=== PATIENT | female | born 2000 | race Caucasian/White ===

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

== ENCOUNTER → 2022-05-20 | Outpatient (CLI) | payer BC, SELFPAY ==
[2022-05-20 15:09] LABS: Cholesterol 211 mg/dL (200); High Density Lipoprotein 40 mg/dL; Triglycerides 162 mg/dL; Very Low Density Lipoprotein 32 mg/dL (5-40)
== END | disposition home or self-care (01) ==
LOC: BIMLAB 13:57
PROVIDERS: PCP Internal Medicine; Referring Provider Internal Medicine; Visit Provider Internal Medicine
DX: E78.5 Hyperlipidemia, unspecified (principal)
CPT/HCPCS: 36415; 80061

== ENCOUNTER → 2023-01-13 | Outpatient (CLI) | payer BC, SELFPAY ==
[2023-01-13 16:33] LABS: Absolute Lymphocyte Count 2.86 X10^3/uL (0.83-4.51); Absolute Neutrophil Count 8.3 X10^3/uL (2.0-7.7); Basophil# 0.06 X10^3/uL; Basophil% 0.5 % (0-1); Eosinophil# 0.06 X10^3/uL; Eosinophils% 0.5 % (0-5); Hematocrit 37.2 % (37-47); Hemoglobin 12.5 g/dL (12.0-15.0); Lymphocyte # 2.86 X10^3/ul (0.83-4.51); Lymphocyte % 23.8 % (19-41); Mean Corp Hgb Conc 33.6 g/dL (32-36); Mean Corpuscular Hgb 28.3 pg (27.0-32.0); Mean Corpuscular Volume 84.2 fL (81-99); Mean Platelet Vol. 9.7 fl (6.2-12.0); Monocyte% 5.8 % (0-10); NRBC Flagged by Analyzer 0 % (0-5); Neutrophil # 8.32 X10^3/uL (2.7-7.7); Neutrophil % 69.1 % (47-70); Platelet Count 519 K/mm3 (150-450); RBC Distribution Width CV 12.9 % (11.6-14.6); RBC Distribution Width SD 39.3 fl (35.1-43.9); Red Blood Count 4.42 M/mm3 (4.2-5.4)
[2023-01-13 16:52] LABS: ALB/GLOB Ratio 0.8 RATIO (0.9-2.4); AST(SGOT) 11 U/L (15-37); Alanine Aminotransfer ALT/SGPT 17 U/L (13-56); Albumin, Serum 3.4 g/dL (3.2-5.0); Alkaline Phosphatase 74 U/L (45-117); Anion Gap 6 (5-15); BUN 15 mg/dL (7-18); BUN/Creat Ratio 20.9 RATIO (10-20); Chloride 106 mmol/L (98-107); Cholesterol 243 mg/dL (200); Creatinine, Serum 0.72 mg/dL (0.55-1.02); EST Glomerular Filtration Rate 109 mL/min (>60); Est Glom Filt Rate - Afr Amer 132 mL/min (>60); Globulin 4.1 g/dL (2.2-4.2); Glucose 91 mg/dL (74-106); High Density Lipoprotein 39 mg/dL; Potassium 3.8 mmol/L (3.5-5.1); Protein, Total 7.5 g/dL (6.4-8.2); Sodium Level 139 mmol/L (136-145); Triglycerides 343 mg/dL; Very Low Density Lipoprotein 69 mg/dL (5-40)
== END | disposition home or self-care (01) ==
LOC: BIMLAB 15:49
PROVIDERS: PCP Internal Medicine; Referring Provider Internal Medicine; Visit Provider Internal Medicine
DX: F41.9 Anxiety disorder, unspecified (principal); F32.A Depression, unspecified; E78.5 Hyperlipidemia, unspecified
CPT/HCPCS: 36415; 80053; 80061; 85025

== ENCOUNTER → 2023-09-18 | Outpatient (CLI) | payer BC, SELFPAY ==
--- OUTSIDE RECORDS SUMMARY | 2023-09-18 17:25 | XMS RPT_ITS | CCD ---
Author Name Unknown Address [address] [place] [address] Organization [facility] Care Team Providers Care Collar Packer Name Role Phone Paulette CARTER, Efewongbe Alana Primary Care [facility] ider OLEIDALIAE, EFEWONGBE ALANA Primary Care Unav ailable TIANA CHOW Attending Unavailable MURNANE, FINN TOLENTINO Attending Unavaila ble MURNANE, FINN TOLENTINO Referring Unavaila ble OLEGHE, EFEWONGBE ALANA Primary Care Unav ailable MURNANE, FINN TOLENTINO Attending Unavaila ble MURNANE, FINN TOLENTINO Referring Unavaila ble OLEGHE, EFEWONGBE ALANA Primary Care Unav ailable MURNANE, FINN TOLENTINO Referring Unavaila ble OLEGHE, EFEWONGBE ALANA Primary Care Unav ailable MURNANE, FINN TOLENTINO Attending Unavaila ble SEKHSARIA, ZOHREH Admitting Unavailable MURNANE, FINN TOLENTINO Attending Unavaila ble SEKHSARIA, ZOHREH Referring Unavailable OLEGHE, EFEWONGBE ALANA Primary Care Unav ailable MURNANAngelic, FINN TOLENTINO Attending Unavaila ble OLEGHE, EFEWONGBE ALANA Primary Care Unav ailable Marcus Riki, Brina Primary Care Provider Marcus Riki, Brina Unavailable JIAN DANIELS Referring Unavailable MARCUS RIKI, BRINA Primary Care Unavailable JIAN DANIELS Attending Unavailable JIAN DANIELS Referring Unavailable MARCUS RIKI, BRINA Primary Care Unavailable JIAN DANIELS Attending Unavailable JIAN DANIELS Referring Unavailable MARCUS RIKI, BRINA Primary Care Unavailable Marcus [place], Brina Primary Care Provider Marcus [place], Brina Unavailable Jian Daniels DO Unavailable ERIKA BRAVO, INNA Conner Attending UnavailASHLEY Han MD Primary Care Unavailab le Unavailable Primary Care Provider UnavailAshley Han Primary Care Provider Ashley Caldwell Primary Care Provider ERA DOS SANTOS Attending Unavailable ASHLEY CALDWELL Primary Care Unavailable JESUS HUTCHINSON Attending Unavailable CALIN ROSEN Referring Unavailable ASHLEY CALDWELL Primary Care Unavailable YAKELIN LEÓN Attending Unavailable ASHLEY CALDWELL Primary Care Unavailable CALIN ROSEN Attending Unavailable Allergies Allergy Classification Reported Allergen(s) Allergy Type Date of Onset Reaction(s) Facility (4 sources) Fludrocortisone; Translations: [FLUDROCORTISONE ] Drug Allergy 03-02-2022 Other: See Comments [facility] Medications Current Medications Medication Drug Class(es) Dates Sig (Normalized) Sig (Original) cephalexin 500 mg oral capsule (2 sources) Cephalosporin Antibacterial Start: 05-11-2021 take 1 capsule by mouth four times daily cephALEXin (KEFLEX) 500 MG capsule Take 1 (one) capsule (500 mg total) by mouth 4 (four) times a day . 28 capsule 0 05/11/2021 Active Ethinyl Estradiol / Ferrous fumarate / Norethindrone (8 sources) Estrogen Start: 04-06-2021 take 1 tablet by mouth once daily .5/30, 28, 1.5 mg-30 mcg (21)/75 mg (7) tablet Take 1 tablet by mouth daily . 0 04/06/2021 Active Completed/Discontinued Medications Medication Drug Class(es) Dates Sig (Normalized) Sig (Original) cetirizine hydrochloride 10 mg oral tablet (5 sources) Histamine-1 Receptor Antagonist Start: 07-23-2018 cetirizine (ZYRTEC) 10 mg tablet Take 10 mg by mouth. 0 07/23/2018 Active Problems Active Problems Problem Classification Problem Date Documented Date Episodic/Chronic Anxiety disorders (2 sources) Generalized anxiety disorder; Translations: [Generalized anxiety disorder] Onset: 08-23-2022 2 Chronic Cardiac dysrhythmias (2 sources) Paroxysmal supraventricular tachycardia; Translations: [Supraventricular tachycardia] Onset: 06-12-2021 08-23-2022 Chronic Cardiac dysrhythmias (9 sources) Tachycardia; Translations: [Tachycardia, unspecified] Onset: 08-23-2022 Episodic Conditions associated with dizziness or vertigo (1 source) Lightheadedness; Translations: [Dizziness and giddiness] Episodic Disorders of lipid metabolism (3 sources) Hypercholesterolemia; Translations: [Pure hypercholesterolemia, unspecified] Onset: 08-23-2022 Chronic Headache; including migraine (4 sources) Frequent headache; Translations: [Frequent headaches] Onset: 08-23-2022 08-23-2022 Episodic Headache; including migraine (2 sources) Headache; including migraine; Translations: [Headache, unspecified] Onset: 01-09-2023 Intracranial injury (4 sources) Concussion with no loss of consciousness; Translations: [Concussion without loss of consciousness, initial encounter] Onset: 12-28-2022 Episodic Other injuries and conditions due to external causes (2 sources) Injury of head; Translations: [Unspecified injury of head, initial encounter] Episodic Other injuries and conditions due to external causes (2 sources) Unspecified injury of head, initial encounter; Translations: [Unspecified injury of head, initial encounter] Onset: 12-28-2022 Episodic Other screening for suspected conditions (not mental disorders or infectious disease) (3 sources) Shortened MO interval; Translations: [Abnormal electrocardiogram [ECG] [EKG]] Onset: 08-24-2022 Episodic Other upper respiratory infections (2 sources) Upper respiratory infection; Translations: [Acute upper respiratory infection, unspecified] Onset: 08-23-2022 08-23-2022 Episodic Residual codes; unclassified (2 sources) Insomnia; Translations: [Insomnia, unspecified] Onset: 08-23-2022 08-23-2022 Episodic Syncope (11 sources) Vasovagal syncope; Translations: [Syncope and collapse] Onset: 03-02-2022 Episodic Past or Other Problems Problem Classification Problem Date Documented Da te Episodic/Chronic Nausea and vomiting (2 sources) Nausea with vomiting, unspecified; Translations: [Nausea with vomiting, unspecified] Onset: 09-05-2022 Episodic Results Test Name Value Interpretation Reference Range Facil ity Vital Signs Date Time Vital Sign Value Performing Clinician Faci [facility] 02-18-2023 01:00-0400 Body temperature 98.29 [degF] Calin Rosen MD Work Phone: [facility] [employer] 02-18-2023 01:00-0400 Diastolic blood pressure 74 mm[Hg] Calin Rosen MD Work Phone: [facility] [employer] 02-18-2023 01:00-0400 Heart rate 95 /min Calin Rosen MD Work Phone: [facility] 02-18-2023 01:00-0400 Respiratory rate 20 /min Calin Rosen MD Work Phone: [facility] [employer] 02-18-2023 01:00-0400 SaO2% (BldA) [Mass fraction] 99 % Calin Rosen MD Work Phone: [facility] [employer] 02-18-2023 01:00-0400 Systolic blood pressure 110 mm[Hg] Calni Rosen MD Work Phone: [facility] [employer] 02-17-2023 22:59-0400 Body height 154.9 cm Calin Rosen MD Work Phone: [facility] [employer] 02-17-2023 22:59-0400 Body mass index (BMI) [Ratio] 20.78 kg/m2 Calin Rosen MD Work Phone: [facility] 02-17-2023 22:59-0400 Body weight 49.9 kg Calin Rosen MD Work Phone: [facility] 01-09-2023 15:34-0400 Body temperature 99 [degF] Era Voll DO Work Phone: [facility] 01-09-2023 15:34-0400 Diastolic blood pressure 65 mm[Hg] Era Voll DO Work Phone: [facility] 01-09-2023 15:34-0400 Heart rate 111 /min Era Voll DO Work Phone: [facility] 01-09-2023 15:34-0400 Respiratory rate 14 /min Era Wyattl DO Work Phone: [facility] 01-09-2023 15:34-0400 SaO2% (BldA) [Mass fraction] 97 % Era Voll DO Work Phone: [facility] 01-09-2023 15:34-0400 Systolic blood pressure 108 mm[Hg] Era Voll DO Work Phone: [facility] 12-28-2022 14:46-0400 Body temperature 98.01 [degF] Yakelin Lightoch DO Work Phone: [facility] 12-28-2022 14:46-0400 Diastolic blood pressure 79 mm[Hg] Yakelin Lightoch DO Work Phone: [facility] [employer] 12-28-2022 14:46-0400 Heart rate 114 /min Yakelin Lightoch DO Work Phone: [facility] 12-28-2022 14:46-0400 Respiratory rate 18 /min Yakelin Lightoch DO Work Phone: [facility] 12-28-2022 14:46-0400 SaO2% (BldA) [Mass fraction] 98 % Yakelin Lightoch DO Work Phone: [facility] 12-28-2022 14:46-0400 Systolic blood pressure 123 mm[Hg] Yakelin Lightoch DO Work Phone: [facility] 08-24-2022 08:31-0500 Body height 154.9 cm Jian Courson DO Work Phone: [facility] 08-24-2022 08:31-0500 Body weight 49.9 kg Jian Courson DO Work Phone: [facility] 03-02-2022 11:23-0400 Body height 154.9 cm Jian Courson DO Work Phone: [facility] 03-02-2022 11:23-0400 Body mass index (BMI) [Percentile] Per age and sex 40.87 % Jian Daniels DO Work Phone: [facility] 03-02-2022 11:[id number] Body weight 50.35 kg Jian Daniels DO Work Phone: [facility] Encounters Encounter Date Encounter Type Care Provider Facility Start: 02-18-2023 End: 02-19-2023 ambulatory CALIN ROSEN [facility] Start: 02-18-2023 End: 02-18-2023 Subsequent hospital visit by physician [facility] Ecg [facility] Non-Invasive Cardiology Procedures Date Procedure Procedure Detail Performing Clinician Start: 02-18-2023 Ecg routine ecg w/le ast 12 lds trcg only w/o i&r Calin Rosen MD Work Phone: Start: 02-18-2023 Urinalysis complete panel - Urine Calin Rosen MD Work Phone: Start: 02-18-2023 Urine test visual color cmprsn meths Calin Rosen MD Work Phone: Start: 02-18-2023 Urnls dip stick/tabl et reagent auto microscopy Calin Rosen MD Work Phone: Start: 02-17-2023 Comprehensive metabo lic panel Calin Rosen MD Work Phone: Start: 01-09-2023 Ct head/brain w/o co ntrast material Era Dos Santos DO Work Phone: Start: 01-09-2023 Urine test visual color cmprsn meths Era Dos Santos DO Work Phone: Plan of Treatment Date Care Activity Detail Author Start: 2052 Zoster Vaccines (1 of 2) Zoster Vaccines (1 of 2) [facility] Start: 06-25-2024 DTaP/Tdap/Td Vaccines (7 - Td or Tdap) DTaP/Tdap/Td Vaccines (7 - Td or Tdap) [facility] Start: 06-25-2024 Tetanus vaccination Tetanus: Every 10yrs [facility] Start: 04-28-2023 Influenza vaccination Influenza Vaccine (Season Ended) [facility] Start: 04-28-2022 Influenza vaccination [facility] Start: 08-28-2021 DEPRESSION ASSESSMENT DEPRESSION ASSESSMENT [facility] Start: 06-17-2021 COVID-19 VACCINE (3 - Booster for Pfizer series) COVID-19 VACCINE (3 - Booster for Pfizer series) [facility] Start: 06-11-2021 End: 06-11-2021 Patient encounter procedure 06/11/2021 Initial consult Cardiology Zohreh Patel MD [address] [place] [id number] Finn Barfield MD [address] [place] [address] [facility] Start: 2021 Urine microalbumin profile DTAP,TDAP,TD (1 - Tdap) [facility] Start: 04-28-2021 Influenza vaccination Sequential Influenza Vaccine (#1) [facility] Start: 03-12-2021 COVID-19 VACCINE (3 - Booster for Pfizer series) COVID-19 VACCINE (3 - Booster for Pfizer series) [facility] Start: 2020 CHLAMYDIA SCREENING (18-24) CHLAMYDIA SCREENING (18-24) [facility] Start: 2020 Diabetes mellitus screening Diabetes Screening [facility] Start: 2020 GC (GONORRHEA) SCREENING (18-24) GC (GONORRHEA) SCREENING (18-24) [facility] Start: 2020 Hepatitis C screening Hepatitis C Screening [facility] Start: 2020 HEPATITIS C SCREENING HEPATITIS C SCREENING [facility] Start: 2020 HIV SCREENING HIV SCREENING [facility] Start: 2017 HIV screening HIV Screening [facility] Start: 2016 PEDS TO ADULT TRANSITION ANNUAL ASSESSMENT PEDS TO ADULT TRANSITION ANNUAL ASSESSMENT [facility] Start: 07-23-2014 Varicella vaccination Varicella Vaccines (1 of 2 - 2-dose childhood series) [facility] Start: 2014 Depression screening using PHQ-9 (Patient Health Questionnaire 9) score [facility] Start: 2014 PEDS TO ADULT TRANSITION INITIAL DISCUSSION PEDS TO ADULT TRANSITION INITIAL DISCUSSION [facility] Start: 2013 HPV VACCINE (1 - 2-dose series) HPV VACCINE (1 - 2-dose series) [facility] Start: 2013 HPV Vaccines (1 - 2-dose series) HPV Vaccines (1 - 2-dose series) [facility] Start: 2013 Vaccination for human papillomavirus HPV Vaccines (1 - 2-dose series) [facility] Start: 07-18-2012 Varicella vaccination Varicella Vaccines (1 of 2 - 2-dose childhood series) [facility] Start: 2012 MENINGOCOCCAL B: Consider based on risk (1 of 2 - Risk Bexsero 2-dose series) MENINGOCOCCAL B: Consider based on risk (1 of 2 - Risk Bexsero 2-dose series) [facility] Start: 2007 COVID-19 VACCINE (1) COVID-19 VACCINE (1) [facility] Start: 2005 History and physical examination, annual for health maintenance Wellness Visit [facility] Start: 2002 HEPATITIS B (1 of 3 - 3-dose series) HEPATITIS B (1 of 3 - 3-dose series) [facility] Start: 2002 HIV screening HIV Screening [facility] Start: 2002 Screening for Chlamydia trachomatis Chlamydia Screening [facility] End: 05-28-2022 12 lead ECG ECG 12 lead ECG Routine Tachycardia 1 Occurrences starting 05/28/2021 until 05/28/2022 [facility] Work Phone: Immunizations Immunization Date Immunization Notes Care Provider Janet pruett 06-25-2014 influenza virus vacc ine, unspecified formulation Yakelin León DO Work Phone: [facility] Payers Date Payer Category Payer Unknown [id number] 2018 Unknown [id number] 2018 Unknown [id number] 2002 Unknown [id number] [id number]. [id number] 2002 Unknown [id number] [id number]. [id number] 2002 Unknown [id number] [id number]. [id number] 2002 Unknown [id number] 2.16. [id number] 2002 Unknown [id number] 2.16. [id number] 2002 Unknown [id number] 2.16. [id number] 2002 Unknown [id number] Social History Date Type Detail Facility Start: 05-11-2021 End: 02-17-2023 Tobacco smoking status NHIS Never smoked tobacco [facility] Start: 05-11-2021 End: 02-17-2023 Tobacco use and exposure Smokeless tobacco non-user [facility] Start: 05-11-2021 End: 02-17-2023 Alcohol intake Ex-drinker (finding) [facility] Start: 10-18-2019 End: 05-11-2021 History SDOH Alcohol Frequency 1 [facility] Start: 2002 [facility]: 02-20-2022 End: 02-18-2023 Exposure to SARS-CoV-2 (event) Not sure [facility] Start: 11-24-2021 End: 08-24-2022 Alcohol intake Lifetime non-drinker (finding) [facility] Tobacco smoking stat [facility] Tobacco smoking consumption unknown [facility] Start: 02-17-2023 History of Social function [facility] Start: 02-17-2023 Tobacco use panel [facility] Clinical Notes 08-04-2021 to 02-17-2023 Discharge InstructionsCalin Rosen MD - 02/17/2023 10:57 PM Teena Peterson RN - 02/17/2023 10:57 PM Teena Peterson RN - 02/17/2023 10:57 PM EDTDischarge InstructionsAttachments Note Date & Type Note Facility 02-17-2023 Hospital Discharge instructions Calin Rosen MD - 02/17/2023 11:24 PM EDT You were seen in the Emergency Department for a syncopal episode (fainting). Your workup here showed that you have no dangerous cause of your conditions. You should drink plenty of fluids and get plenty of rest. Avoid using marijuana or any other drugs. Return to the Emergency Department if you have: - Chest pain or palpitations - Inability to keep down any fluids - High fever (102F) - Any other symptoms that concern you documented in this encounter [facility] 02-17-2023 Emergency department Note [facility] ED EMERGENCY DEPARTMENT ENCOUNTER Pt Name: Shaye Puri Birthdate 2000 Date of evaluation: 02/17/2023 Provider: Calin Rosen MD CHIEF COMPLAINT Chief Complaint Patient presents with Syncope HISTORY OF PRESENT ILLNESS I wore a N95 mask for the entirety of this encounter. Shaye Puri is a 22 y.o. female who presents to the emergency department after a syncopal episode in the setting of taking a 25 mg marijuana edible at 6 PM today. About 2 minutes prior to passing out she started to have some periumbilical abdominal pain with nausea but no vomiting, diarrhea, dysuria, vaginal bleeding or discharge. Patient was found on the ground by her mother at approximately 10 PM. Patient notes that she was having some mild stomach pain prior to the syncopal episode. Patient also notes that she has a history of vasovagal syncope. Chest pain or palpitations. Nursing Notes were reviewed. Limitations to history: None Outside historians: Parent REVIEW OF SYSTEMS (2+ for level 4; 10+ for level 5) Constitutional: as noted in HPI, and negative for fever/chills Eyes: as noted in HPI, and negative for vision changes ENT: as noted in HPI, and negative for cough CV: as noted in HPI, and negative for chest pain, negative for palpitations Resp: as noted in HPI, and negative for shortness of breath GI: as noted in HPI : as noted in HPI, and negative for urinary symptoms MSK: as noted in HPI, and negative for muscle pain Skin: as noted in HPI, and negative for rash Neuro: as noted in HPI, and negative for headaches, negative for acute focal weakness/numbness PAST MEDICAL HISTORY History reviewed. No pertinent past medical history. SURGICAL HISTORY History reviewed. No pertinent surgical history. CURRENT MEDICATIONS Previous Medications No medications on file ALLERGIES Patient has no known allergies. FAMILY HISTORY No family history on file. SOCIAL HISTORY Social History Socioeconomic History Marital status: Single Tobacco Use Smoking status: Never Smokeless tobacco: Never Vaping Use Vaping Use: Never used Substance and Sexual Activity Alcohol use: Not Currently Drug use: Yes Types: Marijuana SCREENINGS PHYSICAL EXAM (up to 7 for level 4, 8 or more for level 5) ED Triage Vitals [02/17/232258] Temp Heart Rate Resp BP 36.7 C (98.1 F) 105 20 107/79 SpO2 Temp Source Heart Rate Source Patient Position 99 % Temporal Monitor -- BP Location FiO2 (%) -- -- Constitutional: No acute distress HEENT:Head: Atraumatic/normocephalic Eyes: Conjunctivae normal. PERRLA, EOMI ENT: Mucous membranes moist. Normal oropharynx Neck: Normal ROM, supple CV: RRR RESP: CTAB, good respiratory effort, no increased wob GI: Abdomen soft, non-tender, non-distended, +BS, no guarding or rebound tenderness MSK: Normal bulk and tone, no gross deformity EXTR: Warm and well perfused, no edema SKIN: No rash/bruising/erythema PSYCH: Appropriate affect, cooperative behavior NEURO: Alert and oriented x 3, face symmetric, no slurred speech, CN2-12 intact, motor and sensory intact and equal bilaterally. No pronator drift. Cerebellar (finger-nose) normal. DIAGNOSTIC RESULTS Procedures/EKG: EKG was reviewed by myself. Physician EKG interpretation can be found in [facility] RADIOLOGY (Per Emergency Physician): Interpretation per the Radiologist below, if available at the time of this note: No orders to display LABS: Labs Reviewed - No data to display EMERGENCY DEPARTMENT COURSE and DIFFERENTIAL DIAGNOSIS/MDM: Vitals: Vitals: 02/17/239 06/23/23 2259 BP: 107/79 Pulse: 105 Resp: 20 Temp: 36.7 C (98.1 F) TempSrc: Temporal SpO2: 99% Weight: 49.9 kg (110 lb) Height: 1.549 m (5' 1 ) Medications - No data to display I personally saw the patient and performed a substantive portion of the visit including all aspects of the medical decision making. Pt appears nontoxic and vitals are normal. Marijuana edibles likely contributing to presentation. 1L IV fluids for dehydration. Zofran IV for nausea. EKG shows a short MO interval. As discussed below, this has been seen on the patient's prior EKGs and noted by cardiology. Troponin is normal. CBC is normal. CMP is normal. Lipase is normal. Urinalysis shows some leuk esterase and WBCs and bacteria but the patient has no symptoms so will not treat. Urine test is negative. Patient says that she felt improved after Zofran IV and 1 L of IV fluids. I completed a structured, evidence-based clinical evaluation to screen for cardiac and other potentially dangerous causes of syncope in this patient. The evidence indicates that the patient is very low risk for a cardiac or other dangerous cause of syncope and this is consistent with my clinical intuition. The risk of further workup or hospitalization for cardiac or other dangerous cause is likely higher than the risk of the patient having a cardiac or other dangerous cause of syncope. It is, therefore, in the patient s best interest not to do additional emergent testing or hospitalize the patient for syncope at this time. Given history, exam and workup, low suspicion for heart failure, ICH (no trauma, headache), seizure (no witnessed seizure like activity, no postictal period, tongue laceration, bladder incontinence), stroke (no focal neuro deficits), HOCM (no murmur, family history of sudden ), ACS (neg troponin, no anginal pain), aortic dissection (no chest pain), malignant arrhythmia on ekg or any family history of sudden , or GI bleed (stable hgb). Low suspicion for PE given normal vital signs, absence of chest pain or dyspnea, no evidence of DVT, no recent surgery/immobilization. Based on danish syncope rule (see below), patient is low risk and well appearing here, plan to discharge the patient home with PMD follow up. [place]ots[place]an syncope rule: predisposition to vasovagal symptoms/consistent with vasovagal (-1), heart disease history (+1), SBP <90 or >180 on any reading (+2), elevated troponin (+2), abnormal QRS axis < 30 or >100 degrees (+1), QRS duration > 130 ms (+1), cQT interval >480 ms (+2), ED dx of vasovagal (-2) or cardiac syncope (+2) --> <2 points = low risk of 30 day serious even (<3%), 2-3 points = medium risk (~5-8%), 4 or more points = high risk (12.9%). -1 -2 --> -3 points Abdominal exam without peritoneal signs. No evidence of acute abdomen at this time. Well appearing. Given work up, low suspicion for acute hepatobiliary disease (including acute cholecystitis or cholangitis), acute pancreatitis (neg lipase), PUD (including gastric perforation), acute infectious processes (pneumonia, hepatitis, pyelonephritis), acute appendicitis, vascular catastrophe, bowel obstruction, viscus perforation, ovarian torsion (pain is midline, mild), or diverticulitis. Presentation not consistent with other acute, emergent causes of abdominal pain at this time. Patient discharged home in good condition. ED Course as of 02/18/2333 Sat Feb 18, 2023 0014 About 5 minutes ago, I watched the patient ambulate to the bathroom with a steady gait [SERGIO] 0023 Urinalysis Complete with reflex to Culture(!) Patient has no symptoms of urinary tract infection so I doubt urinary tract infection despite the small amount of leuk esterase and few bacteria. There are only 6-10 WBCs. [SERGIO] 0023 EKG appears to not have been uploaded. It shows sinus rhythm, short MO interval, rate 75, no ST elevations or depressions on my read. On care everywhere, there was notes of prior EKGs showing short MO interval. [SERGIO] ED Course User Index [SERGIO] Calin Rosen MD Diagnoses as of 02/18/23 0034 Vasovagal syncope Diagnostic tests considered but not performed: I considered a CT abdomen pelvis for the patient's mild abdominal pain however she has no significant abdominal tenderness and no leukocytosis so I have no concern for an acute surgical abdominal emergency External records reviewed: Outpatient notes -telemedicine cardiology clinic note from July 2022 for vasovagal syncope. This note, patient has had extensive work-up that included 3 events monitors. She has a short MO without preexcitation. Patient and this provider had discussed a trial of midodrine but they held off due to concern of exacerbating her migraines. Diagnostics interpreted by me: As above Discussions with other clinicians: As above Chronic conditions impacting care: Vasovagal syncope CONSULTS: None CRITICAL CARE TIME I personally saw the patient and independently provided 0 minutes of non-concurrent critical care out of the total shared critical care time provided. PROCEDURES: Unless otherwise noted below, none Procedures Patients symptoms are consistent with sepsis, severe sepsis, or septic shock (If yes use .sepsiscoremeasure ): no FINAL IMPRESSION No diagnosis found. DISPOSITION/PLAN PATIENT REFERRED TO: No follow-up provider specified. DISCHARGE MEDICATIONS: New Prescriptions No medications on file (Please note: Portions of this note were completed with a voice recognition program. Efforts were made to edit the dictations but occasionally words and phrases are mis-transcribed.) Calin Rosen MD MIKO Emergency Medicine Physician [facility] Calin Rosen MD 02/18/23 0037 Pt presented to ED with complaints of passing out. Pt took 25mg of an edible today at 6pm and pt was found on the bathroom floor at 10pm by mother. Pt states her stomach hurt before she passed out. Pt has a dx of vasovagal syncope. documented in this encounter [facility] 02-17-2023 Emergency department Triage note Pt presented to ED with complaints of passing out. Pt took 25mg of an edible today at 6pm and pt was found on the bathroom floor at 10pm by mother. Pt states her stomach hurt before she passed out. Pt has a dx of vasovagal syncope. [facility] 02-17-2023 Physician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 activities avoiding further head trauma will give sports medicine follow-up recommended Tylenol and Motrin as needed for headache at this time. [BM] ED Course User Index [BM] Yakelin León DO Diagnoses as of 12/28/221522 Head injury, initial encounter Concussion without loss of consciousness, initial encounter All diagnostic, treatment, and disposition decisions were made by myself in conjunction with the Resident. I also supervised wagner portions of any procedures performed by the Resident. For all further details of the patient's emergency department visit, please see their documentation. (Comment: Please note this report has been produced using speech recognition software and may contain errors related to that system including errors in grammar, punctuation, and spelling, as well as words and phrases that may be inappropriate. If there are any questions or concerns please feel free to contact the dictating provider for clarification.) Yakelin León DO [employer] Yakelin León DO 12/28/221521 [facility] 08-24-2022 Note HNO ID: [id number] Author: Jian Daniels DO Service: ? Author Type: Physician Type: Progress Notes Filed: 08/24/2022 9:39 AM Note Text: [facility] Department of Cardiovascular Medicine VIRTUAL VIDEO VISIT ESTABLISHED OUTPATIENT VISIT SERVICE DATE: 08/24/2022 Patient: Shaye Puri SERVICE TIME: 7:14 AM : 2000 This is a virtual video visit. It required patient-provider interaction for the medical decision making as documented below. Shaye Puri has consented to this video encounter. CHIEF COMPLAINT Syncope HISTORY OF PRESENT ILLNESS Shaye Puri is a 22 year old female that I saw for syncope. She had also been previously evaluated by Dr. Wooten in [place] and [facility] in [place]. Her history was consistent with vasovagal and she had extensive prior work up including three event monitors. She has a short MO without preexcitaion. We discussed a trial of midodrine but held off due to concern of exacerbating her migraines. She has not had syncope but had a near syncopal episode, she recognized the warnings and sat down. She does get episodes of lightheadedness and near syncope about once a week, usually in the morning if she hasn't eaten. Her headaches have lessened and she relates this seems related to decreasing her metoprolol. OSH tilt 11/16/21 OSH monitor 07/01/21 07/01/2021 4:51 PM EDT Heart rate ranged from 49 to 175 bpm with an average heart rate of 84 bpm. Longest pause 1.4 seconds. No ventricular ectopic beats. 6 supraventricular ectopic beats including 1 pair. Standing still palp's increased heart rate correlated with sinus tachycardia. Sitting palp's increased heart rate correlated with sinus tachycardia. Symptoms correlate with sinus tachycardia. OSH echo 06/24/21 Summary 1. Left ventricular systolic function is normal with an ejection fraction by Biplane Method of Discs of 61 %. 2. The left ventricular diastolic function is normal. 3. Right ventricular systolic function is normal. 4. No valvular heart disease noted. Nursing Intake: She states she has been doing okay. She has had no syncope but does get lightheaded/near syncopal once a week with position changes. She drinks 18 ounces of water a day and 20 ounces decaffeinated tea. She salts her food. She does not wear any compression garments. She walks on her treadmill every other day. PAST MEDICAL HISTORY Diagnosis Date Vasovagal syncope PAST SURGICAL HISTORY Procedure Laterality Date ADENOIDECTOMY HX PAST SURGICAL HISTORY OF adnoids TOOTH EXTRACTION wisdom teeth FAMILY HISTORY Problem Relation Age of Onset Arrythmias Half-sister vt/ablation Social History Tobacco Use Smoking status: Never Smokeless tobacco: Never Vaping Use Vaping Use: Never used Substance Use Topics Alcohol use: Never Drug use: Never ALLERGIES Allergen Reactions Debbieine [Fludrocor* Other: See Comments Weakness, fatigue CURRENT MEDICATIONS metoprolol succinate ER (TOPROL XL) 25 mg 24 hr tablet Take 25 mg by mouth once daily. cetirizine (ZYRTEC) 10 mg tablet Take 10 mg by mouth. 09/16, , 1 mg-20 mcg (21)/75 mg (7) per tablet ASSESSMENT: 1. Vasovagal syncope - ICD9: 780.2, ICD10: R55 (primary diagnosis) 2. Palpitations - ICD9: 785.1, ICD10: R00.2 3. Shortened MO interval - ICD9: 794.31, ICD10: R94.31 PLAN (Active Outpatient Problems): Overall, Shaye is doing well. I reinforced that she is doing the right things, she recognized her prodromal symptoms and used posture response to avoid syncope. We also discussed when possible to avoid triggers and reviewed physical counter maneuvers but emphasized I think she is doing the right thing with posture response. We discussed that we are relatively dehydrated in the morning and have been supine so these may aggravate her morning symptoms. We discussed leaving a glass or bottle of water on her nightstand to drink when she first wakes and the option of a stretch band for resisted leg presses prior to getting out of bed. We also discussed eating morning meal and drinking water or coffee prior to shower. She overall is doing well so not planning a change, we discussed if her symptoms worsen we can try midodrine but would start low dose due to her migraines. We also discussed the use of compression leggings. I encourage her to drink 2-3 liters of fluid a day. She denied additional questions and will notify me if recurrent syncope. I personally spent 15 minutes in total time involved in the management and care of this patient. Jian Daniels, August 10, 2022 7:14 AM As a national referral center for Syncope and related conditions, seeing patients from across the country, we cannot provide work, FMLA, disability or other forms, or cardiac clearance. Please contact the patient's primary care physician or clinical corrective therapist f (more content not included)... [facility] 08-24-2022 History of Present illness Narrative Images from the original note were not included. [facility] Department of Cardiovascular Medicine VIRTUAL VIDEO VISIT ESTABLISHED OUTPATIENT VISIT SERVICE DATE: 08/24/2022 Patient: Shaye Puri SERVICE TIME: 7:14 AM : 2000 This is a virtual video visit. It required patient-provider interaction for the medical decision making as documented below. Shaye Puri has consented to this video encounter. CHIEF COMPLAINT Syncope HISTORY OF PRESENT ILLNESS Shaye Puri is a 22 year old female that I saw for syncope. She had also been previously evaluated by Dr. Wooten in [place] and [facility] in [place]. Her history was consistent with vasovagal and she had extensive prior work up including three event monitors. She has a short MO without preexcitaion. We discussed a trial of midodrine but held off due to concern of exacerbating her migraines. She has not had syncope but had a near syncopal episode, she recognized the warnings and sat down. She does get episodes of lightheadedness and near syncope about once a week, usually in the morning if she hasn't eaten. Her headaches have lessened and she relates this seems related to decreasing her metoprolol. OSH tilt 11/16/21 OSH monitor 07/01/21 07/01/2021 4:51 PM EDT Heart rate ranged from 49 to 175 bpm with an average heart rate of 84 bpm. Longest pause 1.4 seconds. No ventricular ectopic beats. 6 supraventricular ectopic beats including 1 pair. Standing still palp's increased heart rate correlated with sinus tachycardia. Sitting palp's increased heart rate correlated with sinus tachycardia. Symptoms correlate with sinus tachycardia. OSH echo 06/24/21 Summary 1. Left ventricular systolic function is normal with an ejection fraction by Biplane Method of Discs of 61 %. 2. The left ventricular diastolic function is normal. 3. Right ventricular systolic function is normal. 4. No valvular heart disease noted. Nursing Intake: She states she has been doing okay. She has had no syncope but does get lightheaded/near syncopal once a week with position changes. She drinks 18 ounces of water a day and 20 ounces decaffeinated tea. She salts her food. She does not wear any compression garments. She walks on her treadmill every other day. PAST MEDICAL HISTORY Diagnosis Date Vasovagal syncope PAST SURGICAL HISTORY Procedure Laterality Date ADENOIDECTOMY HX PAST SURGICAL HISTORY OF adnoids TOOTH EXTRACTION wisdom teeth FAMILY HISTORY Problem Relation Age of Onset Arrythmias Half-sister vt/ablation Social History Tobacco Use Smoking status: Never Smokeless tobacco: Never Vaping Use Vaping Use: Never used Substance Use Topics Alcohol use: Never Drug use: Never ALLERGIES Allergen Reactions Florinef [Fludrocor* Other: See Comments Weakness, fatigue CURRENT MEDICATIONS metoprolol succinate ER (TOPROL XL) 25 mg 24 hr tablet Take 25 mg by mouth once daily. cetirizine (ZYRTEC) 10 mg tablet Take 10 mg by mouth. 09/16, , 1 mg-20 mcg (21)/75 mg (7) per tablet ASSESSMENT: 1. Vasovagal syncope - ICD9: 780.2, ICD10: R55 (primary diagnosis) 2. Palpitations - ICD9: 785.1, ICD10: R00.2 3. Shortened MO interval - ICD9: 794.31, ICD10: R94.31 PLAN (Active Outpatient Problems): Overall, Shaye is doing well. I reinforced that she is doing the right things, she recognized her prodromal symptoms and used posture response to avoid syncope. We also discussed when possible to avoid triggers and reviewed physical counter maneuvers but emphasized I think she is doing the right thing with posture response. We discussed that we are relatively dehydrated in the morning and have been supine so these may aggravate her morning symptoms. We discussed leaving a glass or bottle of water on her nightstand to drink when she first wakes and the option of a stretch band for resisted leg presses prior to getting out of bed. We also discussed eating morning meal and drinking water or coffee prior to shower. She overall is doing well so not planning a change, we discussed if her symptoms worsen we can try midodrine but would start low dose due to her migraines. We also discussed the use of compression leggings. I encourage her to drink 2-3 liters of fluid a day. She denied additional questions and will notify me if recurrent syncope. I personally spent 15 minutes in total time involved in the management and care of this patient. Jian Daniels DO August 10, 2022 7:14 AM As a national referral center for Syncope and related conditions, seeing patients from across the country, we cannot provide work, FMLA, disability or other forms, or cardiac clearance. Please contact the patient's primary care physician or clinical corrective therapist for the documentation requested. We will provide the office notes from the patient's most recent visit if they have not already been received, and other tests or evaluations performed here can be made available upon request. documented in this encounter [facility] 03-02-2022 Note HNO ID: [id number] Author: Jian Daniels DO Service: ? Author Type: Physician Type: Progress Notes Filed: 03/02/2022 12:56 PM Note Text: [facility] Department of Cardiovascular Medicine SECTION OF CARDIAC PACING and ELECTROPHYSIOLOGY OUTPATIENT VISIT DATE March 02, 2022 OUTPATIENT VISIT TYPE CONSULTATION PRIMARY CARE PHYSICIAN: Brina Lyn MD [address] [place] [address] REFERRING PHYSICIAN Jian Daniels [address] [facility] [address] CHIEF COMPLAINT: syncope HISTORY OF PRESENT ILLNESS: Cardiac consultation at the request of Dr. James Wooten. A copy of this consultation note will be provided to the requesting physician by way of shared Medical record or letter to requesting physician via [place] mail. Ms. Puri is a 21 year old female who is seen today for an opinion regarding syncope. She was previously evaluated for this at [facility] in [place] and more recently Dr. Wootne in [place]. She has a history of a short MO on her ECG and has reported palpitations, tachycardia, near syncope and syncope. She wore a holter with no significant arrhythmias. She had an echo with LVEF 61% and no valve disease. She wore an event monitor that showed predominantly sinus rhythm. She had a tilt in October that was positive for vasovagal and she was started on florinef but did not tolerate due to weakness and lightheadedness. She has been on metoprolol and reports this hasn't changed. She has no episodes of syncope since her tilt but has had two episodes of near syncope that she has been able catching herself. She relates she passed out a lot when she was younger, would occur while playing hide and seek and she would get scared. Her symptoms started last fall when she started school, she would feel light headed and dizzy and felt her heart was racing. She had two episodes of syncope about a week before the tilt test. 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 OSH tilt 11/16/21 OSH monitor 07/01/21 07/01/2021 4:51 PM EDT? Heart rate ranged from 49 to 175 bpm with an average heart rate of 84 bpm. Longest pause 1.4 seconds. No ventricular ectopic beats. 6 supraventricular ectopic beats including 1 pair. Standing still palp's increased heart rate correlated with sinus tachycardia. Sitting palp's increased heart rate correlated with sinus tachycardia. Symptoms correlate with sinus tachycardia.? OSH echo 06/24/21 Summary ?1. Left ventricular systolic function is normal with an ejection fraction by Biplane Method of Discs of 61 %. ?2. The left ventricular diastolic function is normal. ?3. Right ventricular systolic function is normal. ?4. No valvular heart disease noted. Nursing Intake: She reports there is no rhyme of reason to symptoms or patterns. Patient reports difficulty ambulating in heat. She also states she experiences fatigue. Patient has had near syncopal events but has not experienced syncope since her tilt table test. She experiences tunnel vision and lightheadedness prior to near syncopal events. Patient notices tachy palpitations daily, which occasionally last for less than 5 minutes but can last up to 30 minutes. Alleviating factors include rest and hydration. She drinks 16 oz of water daily. She drinks less than 16oz tea and a small Pepsi bottle. She salts her food. She denies use of compression stocking and abdominal binder. She does not exercise. She denies shortness of breath, chest pain, orthopnea, or PND. PAST CARDIAC HISTORY: syncope PAST MEDICAL HISTORY Diagnosis Date - NEGATIVE MEDICAL HISTORY PAST SURGICAL HISTORY Procedure Laterality Date - ADENOIDECTOMY HX - PAST SURGICAL HISTORY OF adnoids SOCIAL HISTORY Social History Tobacco Use - Smoking status: Never Smoker - Smokeless tobacco: Never Used Substance Use Topics - Alcohol use: Never - Drug use: Never No family history on file.ALLERGIES: ALLERGIES No Known Allergies MEDICATIONS: cetirizine (ZYRTEC) 10 mg tablet Take 10 mg by mouth. 09/16, , 1 mg-20 mcg (21)/75 mg (7) per tablet REVIEW OF SYSTEMS: General, constitutional: Weight loss or gain- No, Fever or chills-No, Weakness-Yes, Trouble sleeping-Yes. Head, Eyes, Ears, Mouth: Headache, head injury-No, Glasses or contact lenses-Yes, Pain-No, Impaired vision-No, Decreased hearing-No, Ringing in ears-No, Nose bleeds-No, Dental difficulties-No, Bleeding gums-No, Dentures-No. Neck: Swelling-No, Pain-No, Stiffness-No. Respiratory: Cough-No, Spitting up blood-No, Shortness of breath-Yes, Wheezing or asthma-No. Musculoskeletal: Muscle or joint pain or stiffness-Yes, Joint swelling-Yes. Gastrointestinal: Difficulty swal (more content not included)... [facility] 03-02-2022 History of Present illness Narrative Images from the original note were not included. [facility] Department of Cardiovascular Medicine SECTION OF CARDIAC PACING and ELECTROPHYSIOLOGY OUTPATIENT VISIT DATE March 02, 2022 OUTPATIENT VISIT TYPE CONSULTATION PRIMARY CARE PHYSICIAN: Brina Lyn MD [address] [place] [address] REFERRING PHYSICIAN Jian Daniels [address] [facility] [id number] CHIEF COMPLAINT: syncope HISTORY OF PRESENT ILLNESS: Cardiac consultation at the request of Dr. James Wooten. A copy of this consultation note will be provided to the requesting physician by way of shared Medical record or letter to requesting physician via [place] mail. Ms. Puri is a 21 year old female who is seen today for an opinion regarding syncope. She was previously evaluated for this at [facility] in [place] and more recently Dr. Wooten in [place]. She has a history of a short MO on her ECG and has reported palpitations, tachycardia, near syncope and syncope. She wore a holter with no significant arrhythmias. She had an echo with LVEF 61% and no valve disease. She wore an event monitor that showed predominantly sinus rhythm. She had a tilt in October that was positive for vasovagal and she was started on florinef but did not tolerate due to weakness and lightheadedness. She has been on metoprolol and reports this hasn't changed. She has no episodes of syncope since her tilt but has had two episodes of near syncope that she has been able catching herself. She relates she passed out a lot when she was younger, would occur while playing hide and seek and she would get scared. Her symptoms started last fall when she started school, she would feel light headed and dizzy and felt her heart was racing. She had two episodes of syncope about a week before the tilt test. 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 OSH tilt 11/16/21 OSH monitor 07/01/21 07/01/2021 4:51 PM EDT Heart rate ranged from 49 to 175 bpm with an average heart rate of 84 bpm. Longest pause 1.4 seconds. No ventricular ectopic beats. 6 supraventricular ectopic beats including 1 pair. Standing still palp's increased heart rate correlated with sinus tachycardia. Sitting palp's increased heart rate correlated with sinus tachycardia. Symptoms correlate with sinus tachycardia. OSH echo 06/24/21 Summary 1. Left ventricular systolic function is normal with an ejection fraction by Biplane Method of Discs of 61 %. 2. The left ventricular diastolic function is normal. 3. Right ventricular systolic function is normal. 4. No valvular heart disease noted. Nursing Intake: She reports there is no rhyme of reason to symptoms or patterns. Patient reports difficulty ambulating in heat. She also states she experiences fatigue. Patient has had near syncopal events but has not experienced syncope since her tilt table test. She experiences tunnel vision and lightheadedness prior to near syncopal events. Patient notices tachy palpitations daily, which occasionally last for less than 5 minutes but can last up to 30 minutes. Alleviating factors include rest and hydration. She drinks 16 oz of water daily. She drinks less than 16oz tea and a small Pepsi bottle. She salts her food. She denies use of compression stocking and abdominal binder. She does not exercise. She denies shortness of breath, chest pain, orthopnea, or PND. PAST CARDIAC HISTORY: syncope PAST MEDICAL HISTORY Diagnosis Date NEGATIVE MEDICAL HISTORY PAST SURGICAL HISTORY Procedure Laterality Date ADENOIDECTOMY HX PAST SURGICAL HISTORY OF adnoids SOCIAL HISTORY Social History Tobacco Use Smoking status: Never Smoker Smokeless tobacco: Never Used Substance Use Topics Alcohol use: Never Drug use: Never No family history on file.ALLERGIES: ALLERGIES No Known Allergies MEDICATIONS: cetirizine (ZYRTEC) 10 mg tablet Take 10 mg by mouth. 09/16, , 1 mg-20 mcg (21)/75 mg (7) per tablet REVIEW OF SYSTEMS: General, constitutional: Weight loss or gain- No, Fever or chills-No, Weakness-Yes, Trouble sleeping-Yes. Head, Eyes, Ears, Mouth: Headache, head injury-No, Glasses or contact lenses-Yes, Pain-No, Impaired vision-No, Decreased hearing-No, Ringing in ears-No, Nose bleeds-No, Dental difficulties-No, Bleeding gums-No, Dentures-No. Neck: Swelling-No, Pain-No, Stiffness-No. Respiratory: Cough-No, Spitting up blood-No, Shortness of breath-Yes, Wheezing or asthma-No. Musculoskeletal: Muscle or joint pain or stiffness-Yes, Joint swelling-Yes. Gastrointestinal: Difficulty swallowing-No, Heartburn-No, Change in bowel habits-No, Blood in stool, Dark black stools-No. Neurological/Psychiatric: Weakness, paralysis-No, Numbness-No, Tingling-No, Tremor-No, Nervousness or anxiety-Yes, Depressed mood-No, Memory loss-No. Skin: Rash-No, Itching-No. Hematological: Easy bruising-No, Easy bleeding-No. Endocrine: Heat or cold intolerance-No, Excessive sweating-No, Frequent urination-No, Frequent thirst-No. PHYSICAL EXAMINATION: [facility] 09/27/2019 (Approximate) BP w/Orthostatic Vitals Date and Time Orthostatic BP Orthostatic Pulse BP Pulse BP Position BP Site BP Cuff Size 03/02/22 1128 96/57 82 -- -- Standing -- -- 03/02/22 1126 102/59 67 -- -- Sitting -- -- 03/02/22 1123 96/47 60 -- -- Supine -- -- General: Well appearing, in no acute distress. Skin: No clubbing, no cyanosis. Eyes: Extra ocular movements intact Oropharynx: Teeth in good repair. Neck: No jugular venous distention, no carotid bruits, carotids have a normal upstroke, no palpable thyromegaly. Lungs: Clear to auscultation bilaterally, no wheezing or rhonchi. Heart: Regular rhythm, PMI not displaced, S1, S2 normal, no S3, no S4, no heaves, no rub and no murmur. Abdomen: Soft, nontender, bowel sounds normal, no palpable organomegaly, no bruits. Extremities: No peripheral edema . Grade 2/4 distal pulses bilaterally. Neuro: Oriented to person, place and time, alert, cooperative, gait coordinated. CARDIOVASCULAR MEDICINE TESTING: Electrocardiogram: sinus 66 bpm I have personally reviewed the Electrocardiogram. IMPRESSION: 1. Vasovagal syncope - ICD9: 780.2, ICD10: R55 (primary diagnosis) 2. Palpitations - ICD9: 785.1, ICD10: R00.2 3. Shortened MO interval - ICD9: 794.31, ICD10: R94.31 PLAN AND RECOMMENDATIONS: We reviewed her tilt results and discussed vasovagal syncope, I explained what this means and the significance. We discussed syncope and the more common potential causes. We discussed workup and management options. I recommended that they be self aware , meaning that they heed prodromal symptoms and when possible recognize the symptoms that can preceed a syncopal or near syncopal episode. We discussed techniques to minimize recurrence as well as prevent injury. We discussed postural response, to sit or preferably lie down immediately with onset of symptoms, not to try to walk it off . We discussed physical counter maneuvers, such as leg crossing, and contraction of abdomen, thigh, and gluteal muscles which in some can slow the progression of symptoms allow an individual to find a more safe position. We discussed the role of hydration and avoidance of low fluid volume. To be acutely aware of periods of increased fluid loss such when sweating or exertion in hot and humid weather, or during illness with poor intake and/or increased loss such as with diarrhea or vomiting. We discussed the cautious use of dietary sodium (should not use if significant hypertension). We discussed the recovery phase, including drinking water and not being to quick to stand or resume activities. I answered all their questions and they indicated that they understood the above recommendations. She has previously worn three monitors, so will not order another, but I did ask that she use her [employer] ECG feature to get a strip when her HR is over 180 bpm and to send to me via [employer]. I reviewed with them the instrutions to set up [employer] account which are on her visit summary report. I discussed that I want to be sure that she is not having SVT when she has the faster HRs she described. We discussed that we could try midodrine if her has frequent syncope though we need to be cautious as can exacerbate migraines and she has been prone to them. Please note for work if she feels the prodromal symptoms, it is recommended that she immediately use postural response to lie or sit down to minimize her risk for injury, to drink a glass/bottle of water prior to stanidng. To remain lying or seated until symptoms resolve and to be cautious with going right back to standing activities that she was doing when the episode started. I recommend that they set up mychart and message me if significant recurrences of syncope CONTACT INFORMATION: Jian Daniels DO As a national referral center for Syncope and related conditions, seeing patients from across the country, we cannot provide work, FMLA, disability or other forms, or cardiac clearance. Please contact the patient's primary care physician or clinical corrective therapist for the documentation requested. We will provide the office notes from the patient's most recent visit if they have not already been received, and other tests or evaluations performed here can be made available upon request. documented in this encounter [facility] 12-29-2021 Miscellaneous Notes Received Office Note from [facility] - 12/28/2021 Saved in EP Outside Report Uploaded to Scanned Docs Thank you, Aga Rhoades Biochemistry Professor documented in this encounter [facility] 12-23-2021 Miscellaneous Notes Received records and referral from Dr. Wooten's office Saved in EP Outside Report Uploaded to Scanned Docs Aga Rhoades Biochemistry Professor documented in this encounter [facility] 08-09-2021 Miscellaneous Notes Received fax from [facility] for refill on Metoprolol Suc 25 mg. Patient was last seen 06/11/21 and is due back in 6 months. No appt on the books. Will ask Jaylyn to call pt. documented in this encounter [facility] 08-04-2021 History of Present illness Narrative Received fax request from [facility] for all medical records to be sent to James Wooten MD. Request was sent to [employer] for processing and original will be scanned into chart. documented in this encounter [facility] documented in this encounter [facility] note* Diagnosis Tachycardia- Primary Unspecified tachycardia documented in this encounter [facility] note* Diagnosis Tachycardia- Primary Unspecified tachycardia documented in this encounter [facility] note* Diagnosis Tachycardia Unspecified tachycardia documented in this encounter [facility] note* Diagnosis Vasovagal syncope- Primary Syncope and collapse Palpitations Shortened MO interval Nonspecific abnormal electrocardiogram (ECG) (EKG) documented in this encounter [facility] note* Diagnosis Vasovagal syncope- Primary Syncope and collapse Palpitations Shortened MO interval Nonspecific abnormal electrocardiogram (ECG) (EKG) documented in this encounter [facility] note* Diagnosis Vasovagal syncope- Primary Syncope and collapse documented in this encounter [facility] note* Diagnosis Head injury, initial encounter- Primary Concussion without loss of consciousness, initial encounter documented in this encounter [facility] note* Diagnosis Acute nonintractable headache, unspecified headache type- Primary documented in this encounter [facility] note* Diagnosis Vasovagal syncope- Primary Syncope and collapse [facility] Attachments The following attachments cannot be sent through Care Everywhere. * Concussion Discharge Instructions, Adult ([place]i) * Traumatic Brain Injury Discharge Instructions ([place]) [facility] Consultation (Routine) - Authorized Specialty Diagnoses / Procedures Referred By Contac t Referred To Contact Cardiology Diagnoses Tachycardia Lightheadedness Hypercholesteremia Zohreh Patel MD [address] [place] [address] [employer] [facility] Nhamlt [address] [place] [address] Referral ID Status Reason Start Date Expiration Date Visits Requested Visits Authorized [id number] Authorized Specialty Services Required/Pat ient's Best Interest 05/17/2021 05/17/2022 1 1 [facility] for referral (narrative)* Outpatient Procedure (Routine) - Authorized Specialty Diagnoses / Procedures Referred By Contac t Referred To [facility] Diagnoses Vasovagal syncope Procedures ECG COMPLETE ECG ROUTINE ECG W/LEAST 12 LDS W/I&R Jian Daniels DO [address] [place] [address] [facility] [place] [address] [place] [address] Referral ID Status Reason Start Date Expiration Date Visits Requested Visits Authorized [id number] Authorized Auto-Generat ed Referral 2 08/26/2023 1 1 [facility] for referral (narrative)* Consultation (Routine) - Pending Review Specialty Diagnoses / Procedures Referred By Contac t Referred To Contact Sports Medicine Diagnoses Head injury, initial encounter Concussion without loss of consciousness, initial encounter Procedures MO OFFICE/OUTPATIENT NEW HIGH MDM 60-74 MINUTES Yakelin León DO [address] [place] [address] [address] Sm [address] [place] [address] Referral ID Status Reason Start Date Expiration Date Visits Requested Visits Authorized [id number] Pending Review Specialty Services Required 12/28/2022 12/28/2023 1 1 [facility] Summary Purpose Family History No Family History Records FoundNo Family History Records FoundNo Family History Records FoundNo Family History Records FoundNo Family History Records FoundNo Family History Records FoundNo Family History Records FoundNo Family History Records FoundNo Family History Records Found Advance Directives Documents on File Type Date Recorded 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 Advance Directives and Livin g Will 05/11/2021 10:58 PM Documents on File Type Date Recorded 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 Advance Directives and Livin g Will 06/24/2021 10:58 PM Reason for Referral Specialty Diagnoses / Procedures Referred By Juanito zurita Referred To Contact Cardiology Diagnoses Tachycardia Procedures ECG 12 lead Finn Barfield MD [address] [facility] [address] [place] [address] Referral ID Status Reason Start Date Expiration Date V isits Requested Visits Authorized [id number] Authorized 05/28/2021 05/28/2022 1 1 Additional Source Comments INFORMATION SOURCE (unrecogn ized section and content) DATE CREATED AUTHOR AUTHOR'S ORGANIZ ATION 10/28/2019 [facility] DATE CREATED AUTHOR AUTHOR'S ORGANIZ ATION 06/05/2021 [facility] DATE CREATED AUTHOR AUTHOR'S ORGANIZ ATION 07/03/2021 [facility] DATE CREATED AUTHOR AUTHOR'S ORGANIZ ATION 08/06/2021 [facility] DATE CREATED AUTHOR AUTHOR'S ORGANIZ ATION 10/17/2021 [facility] DATE CREATED AUTHOR AUTHOR'S ORGANIZ ATION 08/24/2022 [facility] DATE CREATED AUTHOR AUTHOR'S ORGANIZ ATION 12/18/2022 [facility] DATE CREATED AUTHOR AUTHOR'S ORGANIZ ATION 02/19/2023 [facility] Care Teams (unrecognized sec tion and content) Collar Packer Relationship Specialty Start Date End Date Ashley Caldwell MD [address] [place] [address] PCP - General Internal Medicine 05/11/21 Collar Packer Relationship Specialty Start Date End Date Ashley Caldwell MD [address] [place] [address] PCP - General Internal Medicine 05/11/21 Collar Packer Relationship Specialty Start Date End Date Ashley Caldwell MD [address] [place] [address] PCP - General Internal Medicine 05/11/21 Collar Packer Relationship Specialty Start Date End Date Ashley Caldwell MD [address] [place] [address] PCP - General Internal Medicine 05/11/21 Collar Packer Relationship Specialty Start Date End Date Mariam Smitha [address] [place] [address] PCP - General Pediatrics 10/18/19 Brina Smith 10/18/19 Collar Packer Relationship Specialty Start Date End Date Marcus Lyn Brina [address] [place] [address] PCP - General Pediatrics 10/18/19 Brina Smith 10/18/19 Collar Packer Relationship Specialty Start Date End Date Marcus Lyn Brina [address] [place] [address] PCP - General Pediatrics 10/18/19 Brina Smith 10/18/19 Collar Packer Relationship Specialty Start Date End Date Mariam Sm[address] [place] [address] PCP - General Pediatrics 10/18/19 Brina Smith [address] [facility] [place] [place] [address] 10/18/19 Jian Daniels, DO [address] [place] [address] Primary Staff Physician Cardiology 08/24/22 Collar Packer Relationship Specialty Start Date End Date Brina Smith [address] [place] [place] [address] PCP - General Pediatrics 10/18/19 Brina Smith [address] [facility] [place] [address] 10/18/19 Jian Daniels, DO [address] [place] [address] Primary Staff Physician Cardiology 08/24/22 Collar Packer Relationship Specialty Start Date End Date Ashley Caldwell [address] [place] [address] PCP - General Internal Medicine 01/09/23 Collar Packer Relationship Specialty Start Date End Date Ashley Caldwell [address] [place] [address] PCP - General Internal Medicine 01/09/23 Collar Packer Relationship Specialty Start Date End Date Ashley Caldwell [address] [place] [address] PCP - General Internal Medicine 01/09/23 Reason for Visit (unrecogniz ed section and content) Reason Onset Date Comments Medication Refill 08/09/2021 Reason Comments Outside Referral Requests Request Outside Medical Records Reason Comments Received Outside Medical Records Office Note - 12/28/2021 - [facility] Reason Comments Syncope Reason Comments Head Injury Reason Comments Headache Pt states she has conn d a CONN x2 wks after she got a concussion. Reason Comments Syncope Source Comments (unrecognize d section and content) In the event this informatio n is protected by the Federal Confidentiality of Alcohol and Drug Abuse Patient Records regulations: The Federal rules restrict any use of the information to criminally investigate or prosecute any alcohol or drug abuse patient.[facility] the event this information is protected by the Federal Confidentiality of Alcohol and Drug Abuse Patient Records regulations: The Federal rules restrict any use of the information to criminally investigate or prosecute any alcohol or drug abuse patient.[facility] the event this information is protected by the Federal Confidentiality of Alcohol and Drug Abuse Patient Records regulations: The Federal rules restrict any use of the information to criminally investigate or prosecute any alcohol or drug abuse patient.[facility] the event this information is protected by the Federal Confidentiality of Alcohol and Drug Abuse Patient Records regulations: The Federal rules restrict any use of the information to criminally investigate or prosecute any alcohol or drug abuse patient.[facility] the event this information is protected by the Federal Confidentiality of Alcohol and Drug Abuse Patient Records regulations: The Federal rules restrict any use of the information to criminally investigate or prosecute any alcohol or drug abuse patient.[facility] Scheduled Active and Recently Administ ered Medications (unrecognized section and content) Scheduled Medication Order 01/07/2023 01/08/2023 01/09/2023 dexAMETHasone (PF) (Decadron) injection 12 mg (COMPLETED) 12 mg, Oral, Once, On Mon01/09/23 at 1540, For 1 dose 162 (Given - Provid er: Jair Arias) diphenhydrAMINE (BENADryl) tablet/capsule 25 mg (COMPLETED) 25 mg, Oral, Once, On Mon01/09/23 at 1540, For 1 dose 162 (Given - Provid er: Jair Arias) ketorolac (Toradol) injection 15 mg 15 mg, IntraMUSCular, Once, On Mon01/09/23 at 1700, For 1 dose 1700 (Canceled Entry - Provider: Automatic Discharge Provider - Comment: Automatically canceled at discontinue of medication order) metoclopramide (Reglan) tablet 10 mg (COMPLETED) 10 mg, Oral, Once, On Mon01/09/23 at 1540, For 1 dose 1621 (Given - Provid er: Jair Arias) Scheduled Medication Order 02/16/2023 02/17/2023 02/18/2023 ondansetron (Zofran) injection 4 mg (COMPLETED) 4 mg, IntraVENous, Once, On Mon02/17/23 at 2325, For 1 dose 2349 (Given - Provider: Maximino Crawford RN) sodium chloride 0.9 % bolus 1,000 mL (COMPLETED) 1,000 mL, IntraVENous, at 1,000 mL/hr, Administer over 1 Hours, Once, On Mon02/17/23 at 2325, For 1 dose 2350 (New Bag - Provider: Maximino Crawford RN) 0050 (Due: Stopped - Provider: Maximino Crawford RN) FOR RECORDS PERTAINING TO PATIENTS WHO ARE OR HAVE BEEN ENROLLED IN A CHEMICAL DEPENDENCY/SUBSTANCEABUSE PROGRAM, SOME INFORMATION MAY BE OMITTED. This clinical summary was aggregated from multiple sources. Caution should be exercised in using it in the provision of clinical care. This summary normalizes information from multiple sources, and as a consequence, information in this document may materially change the coding, format and clinical context of patient data. In addition, data may be omitted in some cases. CLINICAL DECISIONS SHOULD BE BASED ON THE PRIMARY CLINICAL RECORDS. [employer] [facility]. provides no warranty or guarantee of the accuracy or completeness of information in this document.
[2023-09-21 07:08] LABS: Chlamydia By Nucleic Acid AMP Negative (Negative); Gonococcus By Nucleic Acid AMP Negative (Negative)
[2023-09-22 17:15] LABS: HPV Reflexed? NOT INDICATED
== END | disposition home or self-care (01) ==
LOC: LABSPEC 17:05
PROVIDERS: PCP Internal Medicine; Referring Provider Nurse Practitioner Women's Health; Visit Provider Nurse Practitioner Women's Health
DX: Z11.3 Encounter for screening for infections with a predominantly sexual mode of transmission (principal); Z12.4 Encounter for screening for malignant neoplasm of cervix
CPT/HCPCS: 87491; 87591; 88175; G0145

== ENCOUNTER → 2023-10-12 | Outpatient (CLI) | payer BC, SELFPAY ==
[2023-10-12 17:01] LABS: Hematocrit 40.9 % (37-47); Hemoglobin 13.2 g/dL (12.0-15.0); Mean Corp Hgb Conc 32.3 g/dL (32-36); Mean Corpuscular Hgb 27.7 pg (27.0-32.0); Mean Corpuscular Volume 85.9 fL (81-99); Mean Platelet Vol. 9.8 fl (6.2-12.0); Platelet Count 534 K/mm3 (150-450); RBC Distribution Width SD 40.4 fl (35.1-43.9); Red Blood Count 4.76 M/mm3 (4.2-5.4); White Blood Count 8.9 K/mm3 (4.4-11.0)
[2023-10-12 17:15] LABS: ALB/GLOB Ratio 0.7 RATIO (0.9-2.4); AST(SGOT) 15 U/L (15-37); Alanine Aminotransfer ALT/SGPT 19 U/L (13-56); Albumin, Serum 3.2 g/dL (3.2-5.0); Alkaline Phosphatase 80 U/L (45-117); Anion Gap 5 (5-15); BUN 9 mg/dL (7-18); Calcium,Total 9.4 mg/dL (8.5-10.1); Chloride 108 mmol/L (98-107); Cholesterol 241 mg/dL (200); Creatinine, Serum 0.75 mg/dL (0.55-1.02); EST Glomerular Filtration Rate 104 mL/min (>60); Est Glom Filt Rate - Afr Amer 125 mL/min (>60); Globulin 4.8 g/dL (2.2-4.2); Glucose 93 mg/dL (74-106); High Density Lipoprotein 44 mg/dL; Potassium 4.1 mmol/L (3.5-5.1); Sodium Level 140 mmol/L (136-145); Triglycerides 191 mg/dL; Very Low Density Lipoprotein 38 mg/dL (5-40)
[2023-10-12 17:20] LABS: Vitamin B12 184 pg/mL (211-911); Vitamin D,25 Hydroxy 9.1 ng/mL
[2023-10-12 17:21] LABS: Ferritin 37 ng/mL (8-252); Iron 108 ug/dL (50-170); Iron Binding Capacity,Total 331 ug/dL (250-450); T4 Total, Thyroxin 10.3 ug/dL (4.8-13.9); Thyroid Stim Hormone (TSH) 1.24 uIU/mL (0.358-3.74)
== END | disposition home or self-care (01) ==
LOC: BIMLAB 15:11
PROVIDERS: PCP Internal Medicine; Referring Provider Nurse Practitioner; Visit Provider Nurse Practitioner
DX: R53.83 Other fatigue (principal); E78.5 Hyperlipidemia, unspecified
CPT/HCPCS: 36415; 80053; 80061; 82306; 82607; 82728; 83540; 83550; 84436; 84443; 85027

== ENCOUNTER 2024-05-30 18:00 | Outpatient (RCR) | payer BC, SELFPAY | END 2024-05-30 19:00 | disposition home or self-care (01) | LOC: PT 18:00 | PROVIDERS: PCP Internal Medicine; Referring Provider Orthopaedic Surgery Sports Medicine; Visit Provider Orthopaedic Surgery Sports Medicine | DX: M25.561 Pain in right knee (principal); G89.29 Other chronic pain | CPT/HCPCS: 97110; 97161 ==

== ENCOUNTER → 2024-09-24 | Outpatient (CLI) | payer BC, SELFPAY ==
[2024-09-26 06:34] LABS: Chlamydia By Nucleic Acid AMP Negative (Negative); Gonococcus By Nucleic Acid AMP Negative (Negative)
== END | disposition home or self-care (01) ==
LOC: LABSPEC 11:43
PROVIDERS: PCP Internal Medicine; Referring Provider Nurse Practitioner Women's Health; Visit Provider Nurse Practitioner Women's Health
DX: N89.8 Other specified noninflammatory disorders of vagina (principal); Z11.3 Encounter for screening for infections with a predominantly sexual mode of transmission
CPT/HCPCS: 87070; 87205; 87491; 87591

== ENCOUNTER → 2025-04-09 | Outpatient (CLI) | payer BC, SELFPAY ==
[2025-04-09 11:27] LABS: Hematocrit 39.8 % (37-47); Hemoglobin 13.0 g/dL (12.0-15.0); Immature Granulocytes Count 0.030 X10^3/uL (0.0-0.0); Mean Corp Hgb Conc 32.7 g/dL (32-36); Mean Corpuscular Volume 84.9 fL (81-99); Mean Platelet Vol. 10.4 fl (6.2-12.0); NRBC Flagged by Analyzer 0 % (0-5); Platelet Count 459 K/mm3 (150-450); RBC Distribution Width CV 12.9 % (11.6-14.6); RBC Distribution Width SD 39.6 fl (35.1-43.9); Red Blood Count 4.69 M/mm3 (4.2-5.4); White Blood Count 7.9 K/mm3 (4.4-11.0)
[2025-04-09 12:08] LABS: Cholesterol 220 mg/dL (<=190); Low Density Lipoprotein Calc. 146 mg/dL; Triglycerides 166 mg/dL; Very Low Density Lipoprotein 33 mg/dL (5-40); cholesterol:hdl ratio screen 5.34
[2025-04-09 12:33] LABS: AST(SGOT) 13 U/L (<=31); Alanine Aminotransfer ALT/SGPT 10 U/L (<=34); Albumin, Serum 4.2 g/dL (3.5-5.0); Alkaline Phosphatase 87 U/L (35-104); Anion Gap 13 (5-15); BUN 13 mg/dL (4-19); BUN/Creat Ratio 16.6 RATIO (10-20); Calcium,Total 9.6 mg/dL (7.6-11.0); Carbon Dioxide 22.7 mmol/L (21.0-32.0); Chloride 105 mmol/L (98-108); Globulin 3.7 g/dL (2.2-4.2); Glucose 95 mg/dL (70-99); Potassium 4.2 mmol/L (3.3-5.1)
== END | disposition home or self-care (01) ==
LOC: LAB 10:23
PROVIDERS: PCP Internal Medicine; Referring Provider Internal Medicine; Visit Provider Internal Medicine
DX: E78.2 Mixed hyperlipidemia (principal); F32.A Depression, unspecified; F41.9 Anxiety disorder, unspecified
CPT/HCPCS: 36415; 80053; 80061; 85025

== ENCOUNTER → 2025-08-19 | Outpatient (CLI) | payer BC, SELFPAY ==
--- OUTSIDE RECORDS SUMMARY | 2025-08-19 17:57 | XMS RPT_ITS | CCD ---
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 Name Role Phone Paulette CARTER, Madeline Mac Primary Care [facility] ider MADELINE CALDWELL ALANA Primary Care Unav ailable TIANA CHOW Attending Unavailable MURNANE, FINN TOLENTINO Attending Unavaila ble MURNANE, FINN TOLENTINO Referring Unavaila ble OLEGHE, EFSOLONGBE ALANA Primary Care Unav ailable MURNANE, FINN TOLENTINO Attending Unavaila ble MURNANE, FINN TOLENTINO Referring Unavaila ble OLEGHE, EFEWONGBE ALANA Primary Care Unav ailable MURNANE, FINN TOLENTINO Referring Unavaila ble OLEGHE, EFEWONGBE ALANA Primary Care Unav ailable MURNANE, FINN TOLENTINO Attending Unavaila ble SEKHSARIA, IVET Admitting Unavailable MURNANE, FINN TOLENTINO Attending Unavaila ble SEKHSARIA, IVET Referring Unavailable OLEGHE, EFEWONGBE ALANA Primary Care Unav ailable MURNANAngelic, FINN TOLENTINO Attending Unavaila ble OLEGHE, EFEWONGBE ALANA Primary Care Unav ailable Paulette, Dr. Ramirez Primary Care Provider [phone] Dr. Madeline Caldwell Referring Provider [phone] ALLAN Floyd Attending Provider Dr. Tiffani Fountain Attending Provider Dr. Madeline Caldwell Attending Provider [phone] Dr. James Wooten Attending Provider Dr. James Wooten Other Provider [phone] Dr. James Wooten Attending Provider [phone] Domingo Riki, Mya Primary Care Provider Domingo Greeley, Mya Unavailable Dr. Madeline Caldwell Primary Care Provider [phone] Dr. Madeline Caldwell Referring Provider [phone] ALLAN Floyd Attending Provider Unavailab le Roof GANTRY RIGGER, GANTRY RIGGER-C Fidel Saavedra Attending Provider Dr. Madeline Caldwell Primary Care Provider Dr. Madeline Caldwell Attending Provider [phone] Dr. Madeline Caldwell Referring Provider [phone] JIAN SALAS Referring Unavailable DOMINGO RIKI, MYA Primary Care Unavailable JIAN SALAS Attending Unavailable JIAN SALAS Referring Unavailable DOMINGO RIKI, MYA Primary Care Unavailable JIAN SALAS Attending Unavailable JIAN SALAS Referring Unavailable DOMINGO RIKI, MYA Primary Care Unavailable Domingo Greeley, Mya Primary Care Provider Domingo Riki, Mya Unavailable Jian Salas DO James Unavailable [phone] ERIKA BRAVO, INNA Conner Attending UnavailMADELINE Han MD Primary Care Unavailab le Unavailable Primary Care Provider UnavailMadeline Han Primary Care Provider Dr. Madeline Caldwell Primary Care Provider [phone] Dr. Madeline Caldwell Attending Provider [phone] Dr. Madeline Caldwell Referring Provider [phone] Marlena GANTRY RIGGER, GANTRY RIGGER-C Aline Attending Provider [phone] Madeline Caldwell Primary Care Provider Dr. Madeline Caldwell Primary Care Provider [phone] Dr. Madeline Caldwlel Referring Provider [phone] Marlena MALDONADO, GURPREET Mireles Attending Provider [phone] GURPREET Sen Attending Provider [phone] DANNY MILLER Attending Unavailab le OLEGHE, EFEWONGBE Primary Care Unavailable FINN GROSSMAN Attending Unavailable OLEGHE, EFEWONGBE Primary Care Unavailable OLEGHE, EFEWONGBE Primary Care Unavailable FINN GROSSMAN Referring Unavailable Oleghe , Dr. Ramirez Primary Care Provider Paulette CARTER, Dr. Ramirez Attending Provider [phone] Paulette CARTER, Dr. Ramirez Referring Provider [phone] OLEGHE, EFEWONGBE B Primary Care Unavailable OLEGHE, EFEWONGBE B Primary Care Unavailable Oleghe, Efewongbe Attending Unavailable Oleghe, Efewongbe Referring Unavailable Oleghe, Efewongbe Primary Care Unavailable Aline Mendiola NP Attending Unavailable Aline Mendiola NP Referring Unavailable Oleghe, Efewongbe Primary Care Unavailable Oleghe, Efewongbe Primary Care Unavailable Oleghe, Efewongbe Attending Unavailable Oleghe, Efewongbe Referring Unavailable Oleghe, Efewongbe Referring Unavailable Aline Mendiola NP Attending Unavailable Oleghe, Efewongbe Primary Care Unavailable Oleghe, Efewongbe Referring Unavailable Oleghe, Efewongbe Attending Unavailable Oleghe, Efewongbe Primary Care Unavailable Oleghe, Efewongbe Primary Care Unavailable Oleghe, Efewongbe Attending Unavailable Oleghe, Efewongbe Referring Unavailable Oleghe, Efewongbe Referring Unavailable Oleghe, Efewongbe Primary Care Unavailable Oleghe, Efewongbe Attending Unavailable Oleghe, Efewongbe Primary Care Unavailable Oleghe, Efewongbe Attending Unavailable Oleghe, Efewongbe Referring Unavailable Allergies Allergy Classification Reported Allergen(s) Allergy Type Date of Onset Reaction(s) Facility (15 sources) Fludrocortisone; Translations: [FLUDROCORTISONE] Drug Allergy 2 Other: See Comments, Other [facility] (1 source) Fludrocortisone Drug Allergy 5 [facility] Medications Current Medications Medication Drug Class(es) Dates Sig (Normalized) Sig (Original) busPIRone hydrochloride 5 mg oral tablet (8 sources) Start: 11-07-2024 End: 11-07-2024 take 2.5 mg by mouth once daily Buspirone 5 mg tablet Active 2.5 mg PO daily 30 60 3 November 07, 2024 7:05pm Start: 08-14-2024 End: 11-07-2024 take 2.5 mg by mouth three times daily Buspirone 5 mg tablet Discontinued 2.5 mg PO THREE TIMES A DAY 90 60 0 October 10, 2024 3:03pm December 08, 2024 12:00am November 07, 2024 7:05pm cephalexin 500 mg oral capsule (2 sources) Cephalosporin Antibacterial Start: 05-11-2021 take 1 capsule by mouth four times daily cephALEXin (KEFLEX) 500 MG capsule Take 1 (one) capsule (500 mg total) by mouth 4 (four) times a day . 28 capsule 0 05/11/2021 Active cyclobenzaprine hydrochloride 10 mg oral tablet (6 sources) Muscle Relaxant Start: 06-27-2024 take 10 mg by mouth once 10 mg, Oral, Once, On [place] 06/27/24 at 1915, For 1 dose Start: 06-27-2024 End: 07-07-2024 take 1 tablet by mouth twice daily as needed for muscle spasms cyclobenzaprine (Flexeril) 10 MG tablet Take 1 tablet (10 mg) by mouth 2 times daily as needed for muscle spasms for up to 10 days. 20 tablet 06/27/2024 07/07/2024 Active Norethindrone-E.Estradiol-Ir on (20 sources) Estrogen Start: 04-14-2025 take 1 tablet by mouth once daily Norethindrone-E.Estradiol-Iron (Kinsey Fe 1.5/30 (28)) 1.5 mg-30 mcg (21)/75 mg (7) tablet Active 1 {tbl} PO daily 112 4 April 14, 2025 8:59am Active pills only for continuous cycling. Start: 09-24-2024 End: 04-14-2025 take 1 tablet by mouth once daily Norethindrone-E.Estradiol-Iron (Kinsey Norton e 1.5 ()) 1.5 mg-30 mcg (21)/75 mg (7) tablet Discontinued 1 {tbl} PO daily 112 September 24, 2024 11:28am April 14, 2025 8:59am Active pills only for continuous cycling. Start: 09-24-2024 take 1 tablet by ryan th once daily Norethindrone-E.Estradiol-Iron (Kinsey F e 1.01/24 ()) 1.5 mg-30 mcg (21)/75 mg (7) tablet Active 1 {tbl} PO daily 112 September 24, 2024 11:28am Active pills only for continuous cycling. Start: 08-26-2024 End: 09-24-2024 take 1 tablet by mouth once daily Norethindrone-E.Estradiol-Iron (Kinsey F e 1.01/24 ()) 1.5 mg-30 mcg (21)/75 mg (7) tablet Discontinued 1 {tbl} PO daily 112 August 26, 2024 12:20pm September 24, 2024 11:29am Active pills only for continuous cycling. Start: 08-26-2024 End: 08-26-2024 take 1 tablet by mouth once daily Norethindrone-E.Estradiol-Iron (Kinsey F e .01/24 ()) 1.5 mg-30 mcg (21)/75 mg (7) tablet Discontinued 1 {tbl} PO daily 84 August 26, 2024 10:47am August 26, 2024 12:21pm Active pills only for continuous cycling. Start: 07-03-2024 End: 07-03-2024 take 1 tablet by mouth once daily Norethindrone-E.Estradiol-Iron (Junel Fe .01/24 ()) 1.5 mg-30 mcg (21)/75 mg (7) tablet Discontinued 1 {tbl} PO DAILY 84 1 July 03, 2024 1:28pm July 03, 2024 3:55pm take active pills only for continuous cycling Start: 07-03-2024 End: 08-26-2024 take 1 tablet by mouth once daily Norethindrone-E.Estradiol-Iron (Kinsey F e .5/30 (28)) 1.5 mg-30 mcg (21)/75 mg (7) tablet Discontinued 1 {tbl} PO daily 84 July 03, 2024 1:00am August 26, 2024 10:47am Active pills only for continuous cycling. Start: 09-18-2023 End: 07-03-2024 take 1 tablet by mouth once daily Norethindrone-E.Estradiol-Iron (Januaryl Fe .01/24 ()) 1.5 mg-30 mcg (21)/75 mg (7) tablet Discontinued 1 {tbl} PO DAILY 84 September 18, 2023 11:57am July 03, 2024 1:29pm take active pills only for continuous cycling Start: 09-18-2023 take 1 tablet by ryan th once daily Norethindrone-E.Estradiol-Iron (Januaryl Fe .01/24 ()) 1.5 mg-30 mcg (21)/75 mg (7) tablet Active 1 TABLET PO DAILY 84 September 18, 2023 10:57am Start: 08-07-2023 End: 09-18-2023 take 1 tablet by mouth once daily Norethindrone-E.Estradiol-Iron (Januaryl Fe .01/24 ()) 1.5 mg-30 mcg (21)/75 mg (7) tablet Discontinued 1 {tbl} PO DAILY 84 0 August 07, 2023 9:47am September 18, 2023 11:57am take active pills only for continuous cycling Start: 08-07-2023 End: 09-18-2023 take 1 tablet by mouth once daily Norethindrone-E.Estradiol-Iron (Januaryl Fe .01/24 ()) 1.5 mg-30 mcg (21)/75 mg (7) tablet Discontinued 1 TABLET PO DAILY August 07, 2023 8:47am September 18, 2023 10:57am Start: 09-13-2022 End: 08-07-2023 take 1 tablet by mouth once daily Norethindrone-E.Estradiol-Iron (Januaryl Fe .01/24 ()) 1.5 mg-30 mcg (21)/75 mg (7) tablet Discontinued 1 {tbl} PO DAILY 84 September 13, 2022 12:21pm August 07, 2023 9:47am take active pills only for continuous cycling Start: 09-13-2022 End: 08-07-2023 take 1 tablet by mouth once daily Norethindrone-E.Estradiol-Iron (Januaryl Fe 1.5/30 (28)) 1.5 mg-30 mcg (21)/75 mg (7) tablet Discontinued 1 TABLET PO DAILY 84 September 13, 2022 11:21am August 07, 2023 8:47am Start: 09-13-2022 take 1 tablet by ryan th once daily Norethindrone-E.Estradiol-Iron (Januaryl Fe 1.5/30 (28)) 1.5 mg-30 mcg (21)/75 mg (7) tablet Active 1 TABLET PO DAILY 84 September 13, 2022 12:21pm Start: 08-15-2022 End: 09-13-2022 take 1 tablet by mouth once daily Norethindrone-E.Estradiol-Iron (Januaryl Fe 1.5/30 (28)) 1.5 mg-30 mcg (21)/75 mg (7) tablet Discontinued 1 {tbl} PO DAILY 84 0 August 15, 2022 10:38am September 13, 2022 12:21pm take active pills only for continuous cycling Start: 08-15-2022 End: 09-13-2022 take 1 tablet by mouth once daily Norethindrone-E.Estradiol-Iron (Januaryl Fe 1.5/30 (28)) 1.5 mg-30 mcg (21)/75 mg (7) tablet Discontinued 1 TABLET PO DAILY August 15, 2022 9:38am September 13, 2022 11:21am Start: 08-15-2022 End: 09-13-2022 take 1 tablet by mouth once daily Norethindrone-E.Estradiol-Iron (Januaryl Fe 1.5/30 (28)) 1.5 mg-30 mcg (21)/75 mg (7) tablet Discontinued 1 TABLET PO DAILY August 15, 2022 10:38am September 13, 2022 12:21pm Start: 08-14-2022 End: 08-15-2022 take 1 tablet by mouth once daily Norethindrone-E.Estradiol-Iron (Januaryl Fe 1.5/30 ()) 1.5 mg-30 mcg (21)/75 mg (7) tablet Discontinued 1 {tbl} PO DAILY 84 0 August 14, 2022 4:24pm August 15, 2022 10:38am take active pills only for continuous cycling Start: 08-14-2022 End: 08-15-2022 take 1 tablet by mouth once daily Norethindrone-E.Estradiol-Iron (Januaryl Fe 1./30 ()) 1.5 mg-30 mcg (21)/75 mg (7) tablet Discontinued 1 TABLET PO DAILY 84 August 14, 2022 3:24pm August 15, 2022 9:38am Start: 08-14-2022 End: 08-15-2022 take 1 tablet by mouth once daily Norethindrone-E.Estradiol-Iron (Januaryl Fe 1./30 ()) 1.5 mg-30 mcg (21)/75 mg (7) tablet Discontinued 1 TABLET PO DAILY August 14, 2022 4:24pm August 15, 2022 10:38am Start: 05-04-2022 End: 08-14-2022 take 1 tablet by mouth once daily Norethindrone-E.Estradiol-Iron (Januaryl Fe 1./30 ()) 1.5 mg-30 mcg (21)/75 mg (7) tablet Discontinued 1 {tbl} PO DAILY 84 0 May 04, 2022 8:52am August 14, 2022 4:24pm take active pills only for continuous cycling Start: 05-04-2022 End: 08-14-2022 take 1 tablet by mouth once daily Norethindrone-E.Estradiol-Iron (Januaryl Fe 1./30 ()) 1.5 mg-30 mcg (21)/75 mg (7) tablet Discontinued 1 TABLET PO DAILY May 04, 2022 7:52am August 14, 2022 3:24pm Start: 05-04-2022 End: 08-14-2022 take 1 tablet by mouth once daily Norethindrone-E.Estradiol-Iron (Januaryl Fe 1./30 ()) 1.5 mg-30 mcg (21)/75 mg (7) tablet Discontinued 1 TABLET PO DAILY May 04, 2022 8:52am August 14, 2022 4:24pm Start: 05-04-2022 take 1 tablet by ryan th once daily Norethindrone-E.Estradiol-Iron (Januaryl Fe 1.5/30 (28)) 1.5 mg-30 mcg (21)/75 mg (7) tablet Active 1 TABLET PO DAILY May 04, 2022 8:52am Start: 04-06-2021 take 1 tablet by ryan th once daily Junel FE 1.5/30, 28, 1.5 mg-30 mcg (21)/ 75 mg (7) tablet Take 1 tablet by mouth daily . 0 04/06/2021 Active Start: 04-06-2021 End: 05-04-2022 take 1 tablet by mouth once daily Norethindrone-E.Estradiol-Iron (Januaryl Fe 1.5/30 (28)) 1.5 mg-30 mcg (21)/75 mg (7) tablet Discontinued 1 {tbl} PO DAILY April 06, 2021 9:38am May 04, 2022 8:52am take active pills only for continuous cycling Start: 04-06-2021 End: 05-04-2022 take 1 tablet by mouth once daily Norethindrone-E.Estradiol-Iron (Januaryl Fe 1.5/30 (28)) 1.5 mg-30 mcg (21)/75 mg (7) tablet Discontinued 1 TABLET PO DAILY April 06, 2021 8:38am May 04, 2022 7:52am Start: 04-06-2021 End: 05-04-2022 take 1 tablet by mouth once daily Norethindrone-E.Estradiol-Iron (Januaryl Fe 1.5/30 (28)) 1.5 mg-30 mcg (21)/75 mg (7) tablet Discontinued 1 TABLET PO DAILY April 06, 2021 9:38am May 04, 2022 8:52am Start: 04-06-2021 take 1 tablet by ryan th once daily Norethindrone-E.Estradiol-Iron (Januaryl Fe 1.5/30 (28)) 1.5 mg-30 mcg (21)/75 mg (7) tablet Active 1 TABLET PO DAILY April 06, 2021 9:38am Start: 11-27-2020 End: 04-06-2021 take 1 tablet by mouth once daily Norethindrone-E.Estradiol-Iron (Januaryl Fe 1.01/24 ()) 1.5 mg-30 mcg (21)/75 mg (7) tablet Discontinued 1 TABLET PO DAILY November 27, 2020 9:45am April 06, 2021 9:40am Start: 11-27-2020 End: 04-06-2021 take 1 tablet by mouth once daily Norethindrone-E.Estradiol-Iron (Januaryl Fe .01/24 ()) 1.5 mg-30 mcg (21)/75 mg (7) tablet Discontinued 1 {tbl} PO DAILY November 27, 2020 12:00am April 06, 2021 9:40am Start: 11-27-2020 End: 04-06-2021 take 1 tablet by mouth once daily Norethindrone-E.Estradiol-Iron (Januaryl Fe .01/24 ()) 1.5 mg-30 mcg (21)/75 mg (7) tablet Discontinued 1 TABLET PO DAILY November 26, 2020 11:00pm April 06, 2021 8:40am Start: 11-27-2020 End: 04-06-2021 take 1 tablet by mouth once daily Norethindrone-E.Estradiol-Iron (Januaryl Fe .01/24 ()) 1.5 mg-30 mcg (21)/75 mg (7) tablet Discontinued 1 TABLET PO DAILY November 27, 2020 12:00am April 06, 2021 9:40am Start: 08-16-2019January FE 09/16, 28, 1 mg-20 mcg (21)/75 mg (7) per tablet norethindrone-et hinyl estradiol (January FE 09/16) 1-20 MG-MCG tablet Take 1 tablet by mouth in the morning. Active norethindrone-et hinyl estradiol (January FE 09/16) 1-20 MG-MCG tablet Take 1 tablet by mouth in the morning. 0 Active Foot Care Products (Plantar Fasciitis Arch Sleeve) pad (9 sources) Start: 01-20-2021 Foot Care Prod ucts (Plantar Fasciitis Arch Sleeve) pad Active 0 .ROUTE .MEDSUPPLY 1 January 20, 2021 11:11am As directed Start: 01-20-2021 End: 03-03-2022 Foot Care Products (Plantar Fasciitis Arch Sleeve) pad Discontinued 0 .ROUTE .MEDSUPPLY 1 0 January 20, 2021 12:00am March 03, 2022 3:02pm As directed Start: 01-20-2021 End: 03-03-2022 Foot Care Products (Plantar Fasciitis Arch Sleeve) pad Discontinued 0 .ROUTE .MEDSUPPLY 1 January 19, 2021 11:00pm March 03, 2022 2:02pm As directed Start: 01-20-2021 End: 03-03-2022 Foot Care Products (Plantar Fasciitis Arch Sleeve) pad Discontinued 0 .ROUTE .MEDSUPPLY 1 January 20, 2021 12:00am March 03, 2022 3:02pm As directed Multivitamin preparation (7 sources) Start: 11-27-2020 take 1 tablet by mouth once daily Multivitamin Active 1 TABLET PO DAILY November 27, 2020 9:46am Start: 11-27-2020 take 1 tablet by ryan th once daily Multivitamin Active 1 TABLET PO DAILY November 26, 2020 11:00pm Start: 11-27-2020 take 1 tablet by ryan th once daily Multivitamin Active 1 TABLET PO DAILY November 27, 2020 12:00am ondansetron 4 mg oral tablet (10 sources) Serotonin-3 Receptor Antagonist Start: 10-24-2023 End: 10-27-2023 take 1 tablet by mouth every six hours ondansetron (Zofran) 4 MG tablet Take 1 tablet (4 mg) by mouth in the morning and 1 tablet (4 mg) at noon and 1 tablet (4 mg) in the evening and 1 tablet (4 mg) before bedtime. Do all this for 3 days. 12 tablet 0 10/24/2023 10/27/2023 Active Start: 10-24-2023 End: 10-24-2023 ondansetron (Zofran) injecti on 4 mg Start: 02-17-2023 End: 02-17-2023 ondansetron (Zofran) injecti on 4 mg Start: 09-05-2022 End: 09-12-2022 take 1 tablet by mouth every eight hours as needed for nausea and vomiting ondansetron ODT (Zofran-ODT) 4 MG disintegrating tablet Take 1 tablet (4 mg) by mouth every 8 hours as needed for nausea or vomiting for up to 7 days. 12 tablet 0 09/05/2022 09/12/2022 Active Start: 09-05-2022 End: 09-05-2022 ondansetron (Zofran) injecti on 4 mg Completed/Discontinued Medications Medication Drug Class(es) Dates Sig (Normalized) Sig (Original) baclofen 5 mg oral tablet (6 sources) gamma-Aminobutyri c Acid-ergic Agonist Start: 11-07-2024 End: 03-05-2025 take 1 tablet by mouth at bedtime as needed for muscle spasms Baclofen 5 mg tablet Discontinued 5 mg PO AT BEDTIME as needed for muscle spasm 30 January 08, 2025 10:09pm March 05, 2025 8:09am calcium ascorbate 500 mg oral tablet (9 sources) Start: 11-27-2020 End: 07-29-2021 take 1 tablet by mouth once daily Ascorbate Calcium (Vitamin C) 500 mg tablet Discontinued 500 mg PO DAILY November 27, 2020 12:00am July 29, 2021 1:54pm cetirizine hydrochloride 10 mg oral tablet (20 sources) Histamine-1 Receptor Antagonist Start: 11-27-2020 End: 10-19-2023 take 1 capsule by mouth once daily as needed Cetirizine (Zyrtec) 10 mg capsule Discontinued 10 mg PO DAILY as needed for allergy symptoms 90 July 26, 2021 9:44am January 13, 2023 3:46pm Start: 07-23-2018 End: 01-17-2024 take 1 tablet by mouth once daily as needed Cetirizine 10 mg tablet Discontinued 0 .ROUTE .COMPLEX 90 October 19, 2023 9:02am January 17, 2024 6:51pm TAKE 1 TABLET BY MOUTH EVERY DAY NEEDED FOR ALLERGY SYMPTOMS Comment on above: Take 10 mg by mouth. Cholecalciferol (15 sources) Vitamin D Start: 10-16-2023 End: 01-08-2024 take 1 tablet by mouth every week Cholecalciferol (Vitamin D3) 1,250 mcg (50,000 unit) tablet Discontinued 1250 ug PO EVERY WEEK 12 84 0 October 16, 2023 1:00am January 07, 2024 12:00am January 08, 2024 12:06am Vitamin d deficiency Vitamin D deficiency, unspecified Start: 10-16-2023 take 1250 ug by mout h every week Cholecalciferol (Vitamin D3) Active 1250 MCG PO EVERY WEEK 12 84 October 16, 2023 12:00am Start: 10-13-2023 End: 10-16-2023 take 1 capsule by mouth every week Cholecalciferol (Vitamin D3) 625 mcg (25,000 unit) capsule Discontinued 625 ug PO EVERY WEEK 6 42 0 October 13, 2023 1:00am November 23, 2023 12:00am October 16, 2023 8:41am Vitamin d deficiency Vitamin D deficiency, unspecified Start: 11-27-2020 End: 10-04-2021 take 1 capsule by mouth once daily Cholecalciferol (Vitamin D3) 125 mcg (5,000 unit) capsule Discontinued 125 ug PO DAILY November 27, 2020 12:00am October 04, 2021 10:01am 1 ml dexamethasone phosphate 10 mg/ml injection (2 sources) Corticosteroid Start: 01-09-2023 End: 01-09-2023 dexAMETHasone (PF) (Decadron) injection 12 mg dicyclomine hydrochloride 10 mg oral capsule (4 sources) Anticholinergic Start: 10-24-2023 End: 11-03-2023 dicyclomine (Bentyl) capsule 10 mg diphenhydrAMINE hydrochloride 25 mg oral tablet (2 sources) Histamine-1 Receptor Antagonist Start: 01-09-2023 End: 01-09-2023 diphenhydrAMINE (BENADryl) tablet/capsule 25 mg ferrous sulfate 250 mg extended release oral tablet (3 sources) Start: 10-13-2023 End: 10-16-2023 take 1 tablet by mouth every other day Ferrous Sulfate (Slow Release Iron) 250 mg (50 mg iron) tablet extended release Discontinued 250 mg PO .every other day 60 42 0 October 13, 2023 1:00am November 23, 2023 12:00am October 16, 2023 8:42am Dietary iron deficiency without anemia Iron deficiency fluconazole 150 mg oral tablet (2 sources) Azole Antifungal Start: 09-29-2024 End: 11-07-2024 Fluconazole 150 mg tablet Discontinued 150 mg PO .COMPLEX 2 0 September 29, 2024 1:00am November 07, 2024 5:44pm 150 mg PO take one po now and repeat in 3 days fludrocortisone acetate 0.1 mg oral tablet (18 sources) Start: 11-17-2021 End: 12-28-2021 take 1 tablet by mouth once daily Fludrocortisone 0.1 mg tablet Discontinued 0.1 mg PO DAILY 26 08November 17, 2021 9:30am December 28, 2021 3:37pm fluticasone propionate 0.05 mg/actuat metered dose nasal spray (5 sources) Corticosteroid Start: 07-05-2022 End: 11-14-2022 Fluticasone Propionate (Flonase Allergy Relief) 50 mcg/actuation spray,suspension Discontinued 1 - 2 NMA INTRANASAL DAILY as needed for nasal congestion 12 09July 05, 2022 1:00am November 14, 2022 1:50pm 2 sprays intranasal for the first week then use 1 spray after. garlic 300 mg capsule (9 sources) Non-Standardized Food Allergenic Extract Start: 11-27-2020 End: 06-09-2021 take 1 capsule by mouth once daily garlic 300 mg capsule Discontinued 300 MG PO DAILY November 27, 2020 9:46am June 09, 2021 2:30pm Start: 11-27-2020 End: 06-09-2021 take 1 capsule by mouth once daily Garlic 300 mg capsule Discontinued 300 mg PO DAILY November 27, 2020 12:00am June 09, 2021 2:30pm Start: 11-27-2020 End: 06-09-2021 take 1 capsule by mouth once daily garlic 300 mg capsule Discontinued 300 MG PO DAILY November 26, 2020 11:00pm June 09, 2021 1:30pm Start: 11-27-2020 End: 06-09-2021 take 1 capsule by mouth once daily garlic 300 mg capsule Discontinued 300 MG PO DAILY November 27, 2020 12:00am June 09, 2021 2:30pm hydrOXYzine hydrochloride 50 mg oral tablet (20 sources) Antihistamine Start: 11-27-2020 End: 01-17-2024 take 25-50 mg by mouth once daily at bedtime as needed for sleep Hydroxyzine Hcl 50 mg tablet Discontinued 50 mg PO AT BEDTIME as needed for insomnia 90 3 April 27, 2023 1:33pm January 17, 2024 6:51pm Take 25 - 50 mg QHS as needed for sleep Start: 11-27-2020 End: 11-27-2020 take 1 tablet by mouth at bedtime Hydroxyzine Hcl 25 mg tablet Discontinued 25 mg PO AT BEDTIME November 27, 2020 12:00am November 27, 2020 11:06am hydrOXYzine pamo ate (Vistaril) 50 MG capsule Take 50 mg by mouth. Active Comment on above: Take 50 mg by mouth. ibuprofen 600 mg oral tablet (20 sources) Nonsteroidal Anti-inflammatory Drug Start: 06-27-2024 End: 06-27-2024 take 600 mg by mouth once 600 mg, Oral, Once, On [place] 06/27/24 at 1915, For 1 dose Start: 06-27-2024 End: 07-04-2024 take 1 tablet by mouth every six hours as needed for pain ibuprofen 600 MG tablet Take 1 tablet (600 mg) by mouth every 6 hours as needed for mild pain (1-3) for up to 7 days. 40 tablet 06/27/2024 07/04/2024 Active Start: 01-13-2023 End: 05-22-2023 take 1 tablet by mouth every eight hours as needed for pain Ibuprofen 600 mg tablet Discontinued 0 .ROUTE .COMPLEX 60 March 22, 2023 8:48am May 22, 2023 1:05pm TAKE 1 TABLET BY MOUTH EVERY 8 HOURS NEEDED FOR PAIN Start: 12-28-2022 End: 12-28-2022 ibuprofen tablet 400 mg Start: 12-28-2022 End: 01-04-2023 take 1 tablet by mouth three times daily ibuprofen 600 MG tablet Take 1 tablet (600 mg) by mouth 3 times daily for 7 days. 21 tablet 0 12/28/2022 01/04/2023 Active ibuprofen (MOTRI N) 200 mg tablet Take 400 mg by mouth. 0 Active Comment on above: Take 400 mg by mouth . 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 meloxicam 7.5 mg oral tablet (2 sources) Nonsteroidal Anti-inflammatory Drug Start: End: take 1 tablet by mouth once daily as needed for pain Meloxicam 7.5 mg tablet Discontinued 7.5 mg PO DAILY as needed for pain 30 0 January 17, 2024 12:00am June 17, 2024 1:20pm metoclopramide 10 mg oral tablet (2 sources) Dopamine-2 Receptor Antagonist Start: End: metoclopramide (Reglan) tablet 10 mg 24 hr metoprolol succinate 25 mg extended release oral tablet (20 sources) beta-Adrenergic Keron Start: 022 End: take 2 tablets by mouth once daily Metoprolol Succinate 25 mg tablet extended release 24 hr Discontinued 12.5 mg PO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 Grayscale sonographic images were obtained of the right upper quadrant. Color Doppler was utilized. FINDINGS: Liver: The liver is normal in contour and echogenicity with no focal hepatic masses. No intra or extrahepatic biliary ductal dilatation is identified. The common bile duct is appropriate in size for the patient's age and measures four mm in diameter. Gallbladder: The gallbladder is unremarkable with no gallbladder wall thickening, pericholecystic fluid, or gallstones. There was a negative sonographic Kaplan's sign. Right Kidney: The right kidney is normal in contour, echogenicity, and size with no hydronephrosis or shadowing renal calculi. Overall, the right kidney measures 9.8 cm in length. Additional structures: The head of the pancreas is normal. The remainder is obscured secondary to overlying bowel gas. IMPRESSION: No acute sonographic abnormality. Unremarkable gallbladder. Report Dictated on Electronically Signed By: Randa Núñez MD Electronically Signed Date/Time: 10/24/2023 6:00 PM [facility] US Abdomen limitedon 024 No acute sonographic abnormality. Unremarkable gallbladder. Report Dictated on Electronically Signed By: Randa Núñez MD Electronically Signed Date/Time: 10/24/2023 6:00 PM [facility] Patient Name: VALERIA HERNANDEZ : 2000 Exam Date/Time: 10/24/2023 16:53 Procedure: US ABDOMEN LIMITED Ordering Provider: MILLER NICHOLAS Reason For Exam: RUQ pain Exam type: Ultrasound abdomen RUQ CLINICAL HISTORY:RUQ pain COMPARISON: None Technique: Grayscale sonographic images were obtained of the right upper quadrant. Color Doppler was utilized. FINDINGS: Liver: The liver is normal in contour and echogenicity with no focal hepatic masses. No intra or extrahepatic biliary ductal dilatation is identified. The common bile duct is appropriate in size for the patient's age and measures four mm in diameter. Gallbladder: The gallbladder is unremarkable with no gallbladder wall thickening, pericholecystic fluid, or gallstones. There was a negative sonographic Kaplan's sign. Right Kidney: The right kidney is normal in contour, echogenicity, and size with no hydronephrosis or shadowing renal calculi. Overall, the right kidney measures 9.8 cm in length. Additional structures: The head of the pancreas is normal. The remainder is obscured secondary to overlying bowel gas. [facility] Haleigh Núñez MD - 10/24/2023 Patient Name: [facility]Z [facility] 2000 [id number] Exam Date/Time: 10/24/2023 16:53 Procedure: US ABDOMEN LIMITED Ordering Provider: MILLER NICHOLAS Reason For Exam: RUQ pain Exam type: Ultrasound abdomen RUQ CLINICAL HISTORY:RUQ pain COMPARISON: None Technique: Grayscale sonographic images were obtained of the right upper quadrant. Color Doppler was utilized. FINDINGS: Liver: The liver is normal in contour and echogenicity with no focal hepatic masses. No intra or extrahepatic biliary ductal dilatation is identified. The common bile duct is appropriate in size for the patient's age and measures four mm in diameter. Gallbladder: The gallbladder is unremarkable with no gallbladder wall thickening, pericholecystic fluid, or gallstones. There was a negative sonographic Kaplan's sign. Right Kidney: The right kidney is normal in contour, echogenicity, and size with no hydronephrosis or shadowing renal calculi. Overall, the right kidney measures 9.8 cm in length. Additional structures: The head of the pancreas is normal. The remainder is obscured secondary to overlying bowel gas. IMPRESSION: No acute sonographic abnormality. Unremarkable gallbladder. Report Dictated on Electronically Signed By: Randa Núñez MD Electronically Signed Date/Time: 10/24/2023 6:00 PM EST [facility] Radiology Study observation (narrative) [facility] US Abdomen limitedOrdered By : Haleigh Núñez on 10-24-2023 [employer] Work Phone: Basophil percentageOrdered B y: Madeline Caldwell on 10-12-2023 Bilirubin [Mass/Vol] 0.20 mg/dL 0.20-1.00 [facility] Comment on above: For patients on eltr ombopag therapy, use of Dimension [place] TBIL is not recommended. Chloride [Moles/Vol] 108 mmol/L 98-107 [facility] Cholesterol [Mass/Vol] 241 mg/dL <200 [facility] Comment on above: <200 mg/dL Desirable 200-240 mg/dL Borderline >240 mg/dL High Risk Glucose [Mass/Vol] 93 mg/dL 74-106 [facility] Potassium [Moles/Vol] 4.1 mmol/L 3.5-5.1 [facility] Protein [Mass/Vol] 8.0 g/dL 6.4-8.2 [facility] Sodium [Moles/Vol] 140 mmol/L 136-145 [facility] Triglyceride [Mass/Vol] 191 mg/dL <199 [facility] Comment on above: The drugs N-Acetylcy steine and Metamizole may falsely depress this assay.Serum Triglycerides Reference Interval Normal <150 mg/dL Borderline high 150 - 199 mg/dL High 200 - 499 mg/dL Very High > or = 500 mg/dL Basophil percentageOrdered B y: Asuncion Sen on 10-12-2023 Hemoglobin (Bld) [Mass/Vol] 13.2 g/dL 12.0-15.0 [facility] WBC (Bld) [#/Vol] 8.9 10*3/uL 4.4-11.0 [facility] Determination of erythrocyte mean corpuscular volume (MCV)Ordered By: Asuncion Sen on 10-12-2023 MCV (RBC) [Entitic vol] 85.9 fL 81-99 [facility] Erythrocyte distribution wid th ratioOrdered By: sAuncion Sen on 10-12-2023 Erythrocyte distribution width (RBC) [Ratio] 13.0 % 11.6-14.6 [facility] Erythrocyte distribution wid th standard deviationOrdered By: Asuncion Sen on 10-12-2023 Erythrocyte distribution width (RBC) [Entitic vol] 40.4 fL 35.1-43.9 [facility] Hematocrit Auto (Bld) [Volum e fraction]Ordered By: Asuncion Sen on 10-12-2023 Hematocrit (Bld) [Volume fraction] 40.9 % 37-47 [facility] Iron measurement (mass/mass) Ordered By: Asuncion Sen on 10-12-2023 Iron (Unsp spec) [Mass/Mass] 108 ug/dL 50-170 [facility] Laboratory - Chemistry and C hemistry - challengeOrdered By: Madeline Caldwell on 10-12-2023 Albumin/Globulin [Mass ratio] 0.7 {ratio} 0.9-2.4 [facility] ALP [Catalytic activity/Vol] 80 U/L 45-117 [facility] ALT [Catalytic activity/Vol] 19 U/L 13-56 [facility] Cholesterol in HDL [Mass/Vol] 44 mg/dL >40 [facility] Comment on above: The drugs N-Acetylcy steine and Metamizole may falsely depress this assay. Reference Range HDL <40 mg/dL Low HDL Cholesterol HDL >or= 60 mg/dL High HDL Cholesterol Cholesterol in LDL [Mass/Vol] 159 mg/dL 0-130 [facility] CO2 [Moles/Vol] 27.0 mmol/L 21.0-32.0 [facility] Globulin (S) [Mass/Vol] 4.8 g/dL 2.2-4.2 [facility] Urea nitrogen/Creatinine [Mass ratio] 12.0 mg/mg 10-20 [facility] Laboratory - Chemistry and C hemistry - challengeOrdered By: Asuncion Sen on 10-12-2023 Cobalamin (Vitamin B12) [Mass/Vol] 184 pg/mL 211-911 [facility] Ferritin [Mass/Vol] 37 ng/mL 8-252 [facility] Laboratory - Hematology and Cell countsOrdered By: Asuncion Sen on 10-12-2023 MCH (RBC) [Entitic mass] 27.7 pg 27.0-32.0 [facility] MCHC (RBC) [Mass/Vol] 32.3 g/dL 32-36 [facility] Platelet mean volume (Bld) [Entitic vol] 9.8 fL 6.2-12.0 [facility] Platelets (Bld) [#/Vol] 534 10*3/uL 150-450 [facility] No Panel InformationOrdered By: Madeline Caldwell on 10-12-2023 Estimated GFR (MDRD) Amer 125 mL/min >60 [facility] Comment on above: GFR Calc Estimated GFR (MDRD) Non-Af Amer 104 mL/min >60 [facility] Comment on above: Non- GFR Calc VLDL Cholesterol 38 mg/dL 5-40 [facility] No Panel InformationOrdered By: Asuncion Sen on 10-12-2023 Total Iron Binding Capacity 331 ug/dL 250-450 [facility] Vitamin D 25-Hydroxy 9.1 ng/mL [facility] Comment on above: Vitamin D 25(OH) Sta tus Range Deficiency <20 ng/mL (50nmol/L) Insufficiency 20 - 30 ng/mL (50 - 75 nmol/L) Sufficiency 30 - 100 ng/mL (75 - 250 nmol/L) Toxicity >100 ng/mL (>250 nmol/L) RBC Auto (Bld) [#/Vol]Ordere d By: Asuncion Sen on 10-12-2023 RBC (Bld) [#/Vol] 4.76 10*6/uL 4.2-5.4 [facility] Serum or plasma calcium anila urement (mass/volume)Ordered By: Madeline Caldwell on 10-12-2023 Calcium [Mass/Vol] 9.4 mg/dL 8.5-10.1 [facility] Serum or plasma creatinine m easurement (mass/volume)Ordered By: Madeline Caldwell on 10-12-2023 Creatinine [Mass/Vol] 0.75 mg/dL 0.55-1.02 [facility] Comment on above: The validity of the calculated GFR & GFRAA in patients over 70 years has not been determined. Clinical correlation is essential. Serum or plasma thyroid stim ulating hormone (TSH) measurement (units/volume)Ordered By: Asuncion Sen on 10-12-2023 TSH Qn 1.24 uIU/mL 0.358-3.74 [facility] Serum or plasma thyroxine (T 4) measurement (mass/volume)Ordered By: Asuncion Sen on 10-12-2023 T4 [Mass/Vol] 10.3 ug/dL 4.8-13.9 [facility] Serum or plasma urea nitroge n measurement (mass/volume)Ordered By: Madeline Caldwell on 10-12-2023 Urea nitrogen [Mass/Vol] 9 mg/dL 7-18 [facility] Thin prep Papanicolaou smear with manual screeningOrdered By: Madeline Caldwell on 10-12-2023 Thin prep Papanicolaou smear with manual screening 3.2 g/dL 3.2-5.0 [facility] Thin prep Papanicolaou smear with manual screening 15 U/L 15-37 [facility] Thin prep Papanicolaou smear with manual screening 5 5-15 [facility] Cervical or vagninal specime n microscopic examination by cytology stain (reported asOrdered By: Aline Mendiola on 09-18-2023 Cytology report Cyto stain Doc (Cvx/Vag) Comment . [facility] Comment on above: The Pap smear is a s creening test designed to aid in thedetection of premalignant and malignant conditions of theuterine cervix. It is not a diagnostic procedure andshould not be used as the sole means of detecting cervicalcancer. Both false-positive and false-negative reports dooccur. Chlamydia trachomatis rRNA d etection by probe and target amplification methodOrdered By: Aline Mendiola on 09-18-2023 C. trachomatis rRNA LUI+probe Ql (Unsp spec) Negative Negative [facility] Laboratory - CytologyOrdered By: Aline Mendiola on 09-18-2023 Face Man Cyto stain Nom (Cvx/Vag) [ID] Comment . [facility] Comment on above: Emily Dias chnologist (ASCP) Laboratory - Microbiology an d Antimicrobial susceptibilityOrdered By: Aline Mendiola on 09-18-2023 N. gonorrhoeae DNA LUI+probe Ql (Unsp spec) Negative Negative [facility] Comment on above: Performed at: =[address] [id number] Director: Shavonne Goins MD, Phone: [phone] Laboratory - Miscellaneous t estsOrdered By: Aline Mendiola on 09-18-2023 Service comment (Unsp spec) [Interp] . . [facility] No Panel InformationOrdered By: Aline Mendiola on 09-18-2023 Human Papillomavirus Screen Comment . [facility] Comment on above: The HPV DNA reflex c yordaneria were not met with this specimenresult therefore, no HPV testing was performed.Performed at: [facility] [id number] [place], [place] [id number] Director: Jean-Claude Neves MD, Phone: [phone] at: [facility] [address] [id number] Director: Shavonne Goins MD, Phone: [phone] No Panel Informationon 09-18 POC Trichomonas (Rapid) Negative [facility] Thin prep Papanicolaou smear with manual screeningOrdered By: Aline Mendiola on 09-18-2023 Thin prep Papanicolaou smear with manual screening Comment . [facility] Comment on above: NEGATIVE FOR INTRAEP ITHELIAL LESION OR MALIGNANCY.CELLULAR CHANGES ASSOCIATED WITH INFLAMMATION ARE PRESENT. This liquid based Th inPrep(R) pap test was screened withthe use of an image guided system. Comprehensive metabolic 1998 panelon 02-18-2023 Albumin [Mass/Vol] 4.1 g/dL 3.5 - 5.0 g/dL [facility] ALP [Catalytic activity/Vol] 72 U/L 38 - 126 U/L [facility] ALT [Catalytic activity/Vol] 9 U/L 0 - 34 U/L [facility] Anion gap [Moles/Vol] 8 mmol/L 3 - 13 mmol/L [facility] AST [Catalytic activity/Vol] 25 U/L 15 - 46 U/L [facility] Bilirubin [Mass/Vol] 0.1 mg/dL Low 0.2 - 1 .3 mg/dL [facility] Calcium [Mass/Vol] 9.0 mg/dL 8.4 - 10. 4 mg/dL [facility] Chloride [Moles/Vol] 107 mmol/L 98 - 10 7 mmol/L [facility] CO2 [Moles/Vol] 24 mmol/L 22 - 30 mmol/L [facility] Creatinine [Mass/Vol] 0.68 mg/dL 0.52 - 1.04 mg/dL [facility] [employer] GFR/1.73 sq M.predicted MDRD (S/P/Bld) [Vol rate/Area] - PINF [facility] Comment on above: Calculation based on the Chronic Kidney Disease Epidemiology Collaboration (CKD-EPI) equation refit without adjustment for race Glucose [Mass/Vol] 114 mg/dL High 70 - 100 mg/dL [facility] Interpretation and review of laboratory results Abnormal [facility] Potassium [Moles/Vol] 3.7 mmol/L 3.5 - 5.1 mmol/L [facility] [employer] Protein [Mass/Vol] 7.2 g/dL 6.3 - 8.2 g/dL [facility] [employer] Sodium [Moles/Vol] 139 mmol/L 135 - 145 mmol/L [facility] [employer] Urea nitrogen [Mass/Vol] 8 mg/dL 7 - 17 mg/d L [facility] Laboratory - Chemistry and C hemistry - challengeon 02-18-2023 Beta HCG ( test) Ql Negative Negative [facility] Comment on above: Please note: Very di lute urine specimens, as indicated by a low specific gravity, may not contain dairy supplies sales representative levels of hCG. If is still suspected, a first morning urine specimen should be collected 48 hours later and tested. Beta HCG ( test) Ql (U) is the most common reason for HCG in urine, although choriocarcinoma, hydatidiform mole, and certain nontrophoblastic malignancies also result in detectable urinary HCG levels. Sensitivity = 20mIU/mL. [facility] Troponin I.cardiac [Mass/Vol] ng/mL 0.000 - 0.034 ng/mL [facility] [employer] Lipase [Catalytic activity/Vol] 99 U/L 23 - 300 U/L [facility] [employer] Lipase [Catalytic activity/V ol]on 02-18-2023 Interpretation and review of laboratory results Normal [facility] No Panel InformationOrdered By: Best Schneider on 02-18-2023 P [place] 22 degrees [facility] [employer] Work Phone: NM Interval 108 ms [facility] [employer] Work Phone: QRS [place] 59 degrees [facility] [employer] Work Phone: QRSD Interval 72 ms [facility] [employer] Work Phone: QT Interval 384 ms [facility] [employer] Work Phone: QTC Interval 429 ms [facility] [employer] Work Phone: T Wave [place] 32 degrees [facility] [employer] Work Phone: [facility] [employer] Work Phone: No Panel Informationon 02-18 SINUS RHYTHM SHORT NM INTERVAL, ACCELERATED AV CONDUCTION No previous ECG available for comparison Electronically Signed On 02-18-2023 23:51:31 EDT by Best Oreilly, - 02/18/2023 IMPRESSION: SINUS RHYTHM SHORT NM INTERVAL, ACCELERATED AV CONDUCTION No previous ECG available for comparison Electronically Signed On 02-18-2023 23:51:31 EDT [facility] Troponin I.cardiac [Mass/Vol ]on 02-18-2023 Interpretation and review of laboratory results Normal [facility] Patients with high levels of Biotin oral intake (ie >5 mg/day) may have falsely decreased Troponin levels. [facility] Urinalysis complete panel (U )on 02-18-2023 Bacteria LM.HPF (Urine sed) [#/Area] Few Abnormal Negative /HPF [facility] Bilirubin Ql (U) Negative Negative mg/dL [facility] Clarity (U) Clear Clear [facility] Color (U) Yellow Lt. Yellow [facility] Epithelial cells.squamous LM.HPF (Urine sed) [#/Area] 0-2 [facility] Glucose Ql (U) Normal Normal (<70) mg/dL [facility] Hemoglobin Ql (U) Negative Negative mg/dL [facility] Interpretation and review of laboratory results Abnormal [facility] Ketones (U) [Mass/Vol] Negative Negat yolanda mg/dL [facility] Leukocyte esterase Test strip Ql (U) 75 Abnormal Negative Bruno/uL [facility] Mucus LM.HPF (Urine sed) [#/Area] Few Negative /LPF [facility] Nitrite Ql (U) Negative Negative [facility] pH (U) 6.0 [pH] 5.0 - 8.0 pH [facility] Protein (U) [Mass/Vol] 10 mg/dL Abnormal Negative [facility] RBC LM.HPF (Urine sed) [#/Area] 0-2 [facility] Specific gravity (U) [Rel density] 1.026 1.005 - 1.030 [facility] Urobilinogen (U) [Mass/Vol] Normal Normal (0-1) mg/dL [facility] WBC LM.HPF (Urine sed) [#/Area] 6-10 Abnormal [facility] Vital signsOrdered By: Desmond Schneider on 02-18-2023 Heart rate 75 /min bpm [facility] [employer] Work Phone: CBC W Auto Differential pane l (Bld)Ordered By: Fredrick Barroso on 02-17-2023 Basophils (Bld) [#/Vol] 0.0 10*3/uL 0.0 - 0.2 10*3/uL [facility] Basophils/100 WBC (Bld) 0.6 % 0.0 - 2.0 % [facility] Eosinophils (Bld) [#/Vol] 0.0 10*3/uL 0. 0 - 0.5 10*3/uL [facility] Eosinophils/100 WBC (Bld) 0.2 % Low 1.0 - 6.0 % [facility] Erythrocyte distribution width (RBC) [Ratio] 12.8 % 11.5 - 14.5 % [facility] Hematocrit (Bld) [Volume fraction] 38.2 % 35.0 - 47.0 % [facility] Hemoglobin (Bld) [Mass/Vol] 12.9 g/dL 11.7 - 16.0 g/dL [facility] Interpretation and review of laboratory results Abnormal [facility] th Lymphocytes (Bld) [#/Vol] 2.1 10*3/uL 1. 0 - 4.3 10*3/uL [facility] Lymphocytes/100 WBC (Bld) 27.2 % 20 .0 - 40.0 % [facility] MCH (RBC) [Entitic mass] 27.9 pg 26. 0 - 34.0 pg [facility] MCHC (RBC) [Mass/Vol] 33.8 % 32.0 - 36.0 % [facility] MCV (RBC) [Entitic vol] 82.6 fL 80.0 - 98.0 fL [facility] Monocytes (Bld) [#/Vol] 0.7 10*3/uL 0.0 - 0.8 10*3/uL [facility] Monocytes/100 WBC (Bld) 8.4 % 2.0 - 10.0 % [facility] Neutrophils (Bld) [#/Vol] 4.9 10*3/uL 1. 8 - 7.0 10*3/uL [facility] Neutrophils/100 WBC (Bld) 63.6 % 40 .0 - 80.0 % [facility] Nucleated RBC/100 WBC (Bld) [Ratio] 0.1 % [facility] Platelet mean volume (Bld) [Entitic vol] 7.8 fL 7.4 - 12.4 fL [facility] Platelets (Bld) [#/Vol] 446 10*3/uL High 140 - 440 10*3/uL [facility] RBC (Bld) [#/Vol] 4.63 10*6/uL 3.8 - 5.20 10*6/uL [facility] WBC (Bld) [#/Vol] 7.7 10*3/uL 3.6 - 10.7 10*3/uL [facility] Absolute lymphocyte countOrd ered By: Dr. Caldwell on 01-13-2023 Lymphocytes Auto (Unsp spec) [#/Vol] 2.86 10*3/uL 0.83-4.51 [facility] Basophil percentageOrdered B y: Dr. Caldwell on 01-13-2023 Basophils/100 WBC (Bld) 0.5 % 0-1 [facility] Bilirubin [Mass/Vol] 0.20 mg/dL 0.20-1.00 [facility] Comment on above: For patients on eltr ombopag therapy, use of Dimension [place] TBIL is not recommended. Chloride [Moles/Vol] 106 mmol/L 98-107 [facility] Cholesterol [Mass/Vol] 243 mg/dL <200 [facility] Comment on above: <200 mg/dL Desirable 200-240 mg/dL Borderline >240 mg/dL High Risk Eosinophils/100 WBC (Bld) 0.5 % 0-5 [facility] Glucose [Mass/Vol] 91 mg/dL 74-106 [facility] Neutrophils (Bld) [#/Vol] 8.3 10*3/uL 2.0-7.7 [facility] Neutrophils/100 WBC (Bld) 69.1 % 47-70 [facility] Potassium [Moles/Vol] 3.8 mmol/L 3.5-5.1 [facility] Protein [Mass/Vol] 7.5 g/dL 6.4-8.2 [facility] Sodium [Moles/Vol] 139 mmol/L 136-145 [facility] Triglyceride [Mass/Vol] 343 mg/dL <199 [facility] Comment on above: The drugs N-Acetylcy steine and Metamizole may falsely depress this assay.Serum Triglycerides Reference Interval Normal <150 mg/dL Borderline high 150 - 199 mg/dL High 200 - 499 mg/dL Very High > or = 500 mg/dL WBC (Bld) [#/Vol] 12.0 10*3/uL 4.4-11.0 [facility] Blood erythrocytes count (nu mber/volume)Ordered By: Dr. Caldwell on 01-13-2023 RBC (Bld) [#/Vol] 4.42 10*6/uL 4.2-5.4 [facility] Blood hemoglobin measurement (mass/volume)Ordered By: Dr. Caldwell on 01-13-2023 Hemoglobin (Bld) [Mass/Vol] 12.5 g/dL 12.0-15.0 [facility] Blood lymphocytes/100 leukoc ytesOrdered By: Dr. Caldwell on 01-13-2023 Lymphocytes/100 WBC (Bld) 23.8 % 19-41 [facility] Blood monocytes/100 leukocyt esOrdered By: Dr. Caldwell on 01-13-2023 Monocytes/100 WBC (Bld) 5.8 % 0-10 [facility] Blood platelet mean volumeOr dered By: Dr. Caldwell on 01-13-2023 Platelet mean volume (Bld) [Entitic vol] 9.7 fL 6.2-12.0 [facility] Determination of erythrocyte mean corpuscular volume (MCV)Ordered By: Dr. Caldwell on 01-13-2023 MCV (RBC) [Entitic vol] 84.2 fL 81-99 [facility] Hematocrit Auto (Bld) [Volum e fraction]Ordered By: Dr. Caldwell on 05-19-2023 Hematocrit (Bld) [Volume fraction] 37.2 % 37-47 [facility] Laboratory - Chemistry and C hemistry - challengeOrdered By: Dr. Caldwell on 01-13-2023 ALP [Catalytic activity/Vol] 74 U/L 45-117 [facility] ALT [Catalytic activity/Vol] 17 U/L 13-56 [facility] CO2 [Moles/Vol] 27.0 mmol/L 21.0-32.0 [facility] Globulin (S) [Mass/Vol] 4.1 g/dL 2.2-4.2 [facility] Urea nitrogen/Creatinine [Mass ratio] 20.9 mg/mg 10-20 [facility] Laboratory - Hematology and Cell countsOrdered By: Dr. Caldwell on 01-13-2023 Erythrocyte distribution width (RBC) [Entitic vol] 39.3 fL 35.1-43.9 [facility] Erythrocyte distribution width (RBC) [Ratio] 12.9 % 11.6-14.6 [facility] Immature granulocytes/100 WBC (Bld) 0.300 % 0.0-0.9 [facility] Comment on above: IG% - Immature Granu locytes (promyelocytes, myelocytes and metamyelocytes) > 1% indicates that a LEFT SHIFT is Present. MCH (RBC) [Entitic mass] 28.3 pg 27.0-32.0 [facility] Nucleated RBC/100 WBC (Bld) [Ratio] 0 % 0-5 [facility] MCHC Auto (RBC) [Mass/Vol]Or dered By: Dr. Caldwell on 01-13-2023 MCHC (RBC) [Mass/Vol] 33.6 g/dL 32-36 [facility] No Panel InformationOrdered By: Dr. Caldwell on 01-13-2023 Estimated GFR (MDRD) Amer 132 mL/min >60 [facility] Comment on above: GFR Calc Estimated GFR (MDRD) Non-Af Amer 109 mL/min >60 [facility] Comment on above: Non- GFR Calc Platelets bldOrdered By: Dr. Caldwell on 01-13-2023 Platelets (Bld) [#/Vol] 519 10*3/uL 150-450 [facility] Serum or plasma albumin anila urement (mass/volume)Ordered By: Dr. Caldwell on 01-13-2023 Albumin [Mass/Vol] 3.4 g/dL 3.2-5.0 [facility] Serum or plasma albumin/glob ulin mass ratioOrdered By: Dr. Caldwell on 01-13-2023 Albumin/Globulin [Mass ratio] 0.8 {ratio} 0.9-2.4 [facility] Serum or plasma calcium anila urement (mass/volume)Ordered By: Dr. Caldwell on 01-13-2023 Calcium [Mass/Vol] 9.0 mg/dL 8.5-10.1 [facility] Serum or plasma cholesterol in HDL measurement (mass/volume)Ordered By: Dr. Caldwell on 01-13-2023 Cholesterol in HDL [Mass/Vol] 39 mg/dL >40 [facility] Comment on above: The drugs N-Acetylcy steine and Metamizole may falsely depress this assay. Reference Range HDL <40 mg/dL Low HDL Cholesterol HDL >or= 60 mg/dL High HDL Cholesterol Serum or plasma cholesterol in VLDL measurement (mass/volume)Ordered By: Dr. Caldwell on 01-13-2023 Cholesterol in VLDL [Mass/Vol] 69 mg/dL 5-40 [facility] Serum or plasma creatinine m easurement (mass/volume)Ordered By: Dr. Caldwell on 01-13-2023 Creatinine [Mass/Vol] 0.72 mg/dL 0.55-1.02 [facility] Comment on above: The validity of the calculated GFR & GFRAA in patients over 70 years has not been determined. Clinical correlation is essential. Serum or plasma low density lipoprotein (LDL) cholesterol measurement (mass/volume)Ordered By: Dr. Caldwell on 01-13-2023 Cholesterol in LDL [Mass/Vol] 135 mg/dL 0-130 [facility] Serum or plasma urea nitroge n measurement (mass/volume)Ordered By: Dr. Caldwell on 01-13-2023 Urea nitrogen [Mass/Vol] 15 mg/dL 7-18 [facility] Thin prep Papanicolaou smear with manual screeningOrdered By: Dr. Caldwell on 01-13-2023 Thin prep Papanicolaou smear with manual screening 11 U/L 15-37 [facility] Thin prep Papanicolaou smear with manual screening 6 -15 [facility] CT Head WO contraston 2022 No acute intracranial hemorrhage or territorial infarct. Report Dictated on Electronically Signed By: Armin Laurent Electronically Signed Date/Time: 01/09/2023 4:36 PM EDT [facility] Name[facility]ER[facility] 2000 [id number] Exam Date/Time: 01/09/2023 16:16 Procedure: CT HEAD WO IV CONTRAST Ordering Provider: DOS SANTOS MATTHEW Reason For Exam: Head trauma, abnormal mental status (Age 18-64y) CLINICAL INDICATION: Head trauma, abnormal mental status (Age 18-64y) COMPARISON: None Technique: Axial CT images were obtained from skull base to vertex. Images were reformatted in coronal and sagittal projections. Dose reduction was employed with automated exposure control. Intravenous contrast: None Findings: There is no CT evidence of an acute intracranial hemorrhage, territorial infarction, midline shift, mass effect, or extra-axial collection. The arana-white differentiation remains preserved and the basal cisterns are patent. Ventricles are appropriate in size for the patient's age and level of parenchymal volume. No acute fractures or suspicious osseous lesions seen. The paranasal sinuses and mastoid air cells remain well aerated. [facility] Armin Laurnet MD - 01/09/2023 Patient Name: VALER[facility]Z [facility] 2000 [id number] Exam Date/Time: 01/09/2023 16:16 Procedure: CT HEAD WO IV CONTRAST Ordering Provider: DOS SANTOS MATTHEW Reason For Exam: Head trauma, abnormal mental status (Age 18-64y) CLINICAL INDICATION: Head trauma, abnormal mental status (Age 18-64y) COMPARISON: None Technique: Axial CT images were obtained from skull base to vertex. Images were reformatted in coronal and sagittal projections. Dose reduction was employed with automated exposure control. Intravenous contrast: None Findings: There is no CT evidence of an acute intracranial hemorrhage, territorial infarction, midline shift, mass effect, or extra-axial collection. The arana-white differentiation remains preserved and the basal cisterns are patent. Ventricles are appropriate in size for the patient's age and level of parenchymal volume. No acute fractures or suspicious osseous lesions seen. The paranasal sinuses and mastoid air cells remain well aerated. IMPRESSION: No acute intracranial hemorrhage or territorial infarct. Report Dictated on Electronically Signed By: Armin Laurent Electronically Signed Date/Time: 01/09/2023 4:36 PM EDT [facility] Rad[facility] Study observation (narrative) [facility] CT Head WO contrastOrdered B y: Armin Laurent on 01-09-2023 [employer] Work Phone: Laboratory - Chemistry and C hemistry - challengeOrdered By: Kelly Donis on 01-09-2023 Beta HCG ( test) Ql Negative Negative [facility] Comment on above: Please note: Very di lute urine specimens, as indicated by a low specific gravity, may not contain [employer] sales representative levels of hCG. If is still suspected, a first morning urine specimen should be collected 48 hours later and tested. Beta HCG ( test) Ql (U) is the most common reason for HCG in urine, although choriocarcinoma, hydatidiform mole, and certain nontrophoblastic malignancies also result in detectable urinary HCG levels. Sensitivity = 20mIU/mL. [facility] No Panel InformationOrdered By: Kelly Donis on 01-09-2023 [facility] CBC W Auto Differential pane l (Bld)Ordered By: Terry Oconnor on 09-05-2022 Basophils (Bld) [#/Vol] 0.1 10*3/uL 0.0 - 0.2 10*3/uL [facility] Basophils/100 WBC (Bld) 0.7 % 0.0 - 2.0 % [facility] Eosinophils (Bld) [#/Vol] 0.1 10*3/uL 0. 0 - 0.5 10*3/uL [facility] [employer] Eosinophils/100 WBC (Bld) 0.5 % Low 1.0 - 6.0 % [facility] [employer] Erythrocyte distribution width (RBC) [Ratio] 13.2 % 11.5 - 14.5 % [facility] [employer] Hematocrit (Bld) [Volume fraction] 37.0 % 35.0 - 47.0 % [facility] Hemoglobin (Bld) [Mass/Vol] 12.6 g/dL 11.7 - 16.0 g/dL [facility] Interpretation and review of laboratory results Abnormal [facility] th Lymphocytes (Bld) [#/Vol] 2.9 10*3/uL 1. 0 - 4.3 10*3/uL [facility] Lymphocytes/100 WBC (Bld) 30.1 % 20 .0 - 40.0 % [facility] MCH (RBC) [Entitic mass] 27.4 pg 26. 0 - 34.0 pg [facility] MCHC (RBC) [Mass/Vol] 34.1 % 32.0 - 36.0 % [facility] MCV (RBC) [Entitic vol] 80.3 fL 80.0 - 98.0 fL [facility] Monocytes (Bld) [#/Vol] 0.7 10*3/uL 0.0 - 0.8 10*3/uL [facility] Monocytes/100 WBC (Bld) 7.1 % 2.0 - 10.0 % [facility] Neutrophils (Bld) [#/Vol] 5.9 10*3/uL 1. 8 - 7.0 10*3/uL [facility] Neutrophils/100 WBC (Bld) 61.6 % 40 .0 - 80.0 % [facility] Nucleated RBC/100 WBC (Bld) [Ratio] 0.1 % [facility] Platelet mean volume (Bld) [Entitic vol] 8.6 fL 7.4 - 12.4 fL [facility] Platelets (Bld) [#/Vol] 398 10*3/uL 140 - 440 10*3/uL [facility] RBC (Bld) [#/Vol] 4.61 10*6/uL 3.8 - 5.20 10*6/uL [facility] WBC (Bld) [#/Vol] 9.6 10*3/uL 3.6 - 10.7 10*3/uL [facility] Comprehensive metabolic 1998 panelon 09-05-2022 Albumin [Mass/Vol] 4.3 g/dL 3.5 - 5.0 g/dL [facility] ALP [Catalytic activity/Vol] 65 U/L 38 - 126 U/L [facility] ALT [Catalytic activity/Vol] 11 U/L 0 - 34 U/L [facility] Anion gap [Moles/Vol] 8 mmol/L 3 - 13 mmol/L [facility] AST [Catalytic activity/Vol] 27 U/L 15 - 46 U/L [facility] Bilirubin [Mass/Vol] 0.4 mg/dL 0.2 - 1 .3 mg/dL [facility] Calcium [Mass/Vol] 9.3 mg/dL 8.4 - 10. 4 mg/dL [facility] Chloride [Moles/Vol] 107 mmol/L 98 - 10 7 mmol/L [facility] CO2 [Moles/Vol] 25 mmol/L 22 - 30 mmol/L [facility] Creatinine [Mass/Vol] 0.90 mg/dL 0.52 - 1.04 mg/dL [facility] GFR/1.73 sq M.predicted MDRD (S/P/Bld) [Vol rate/Area] - PINF [facility] Comment on above: Calculation based on the Chronic Kidney Disease Epidemiology Collaboration (CKD-EPI) equation refit without adjustment for race Glucose [Mass/Vol] 97 mg/dL 70 - 100 mg/dL [facility] Potassium [Moles/Vol] 3.8 mmol/L 3.5 - 5.1 mmol/L [facility] Protein [Mass/Vol] 7.5 g/dL 6.3 - 8.2 g/dL [facility] Sodium [Moles/Vol] 140 mmol/L 135 - 145 mmol/L [facility] Urea nitrogen [Mass/Vol] 13 mg/dL 7 - 17 mg/d L [facility] Laboratory - Chemistry and C hemistry - challengeon 09-05-2022 Beta HCG ( test) Ql Negative Negative [facility] Comment on above: Please note: Very di lute urine specimens, as indicated by a low specific gravity, may not contain dairy [employer] sales representative levels of hCG. If is still suspected, a first morning urine specimen should be collected 48 hours later and tested. Beta HCG ( test) Ql (U) is the most common reason for HCG in urine, although choriocarcinoma, hydatidiform mole, and certain nontrophoblastic malignancies also result in detectable urinary HCG levels. Sensitivity = 20mIU/mL. [facility] Lipase [Catalytic activity/Vol] 97 U/L 23 - 300 U/L [facility] No Panel Informationon 09-05 [facility] Interpretation and review of laboratory results Normal [facility] Urinalysis complete panel (U )on 09-05-2022 Bacteria LM.HPF (Urine sed) [#/Area] Few Abnormal Negative /HPF [facility] Bilirubin Ql (U) Negative Negative mg/dL [facility] Clarity (U) Turbid Abnormal Clear [facility] Color (U) Yellow Lt. Yellow [facility] Epithelial cells.squamous LM.HPF (Urine sed) [#/Area] 6-10 Abnormal [facility] Glucose Ql (U) Normal Normal (<70) mg/dL [facility] Hemoglobin Ql (U) Negative Negative mg/dL [facility] Interpretation and review of laboratory results Abnormal [facility] Ketones (U) [Mass/Vol] Trace Abnormal Negat yolanda mg/dL [facility] Leukocyte esterase Test strip Ql (U) 500 Abnormal Negative Bruno/uL [facility] Mucus LM.HPF (Urine sed) [#/Area] Many Abnormal Negative /LPF [facility] Nitrite Ql (U) Negative Negative [facility] pH (U) 6.0 [pH] 5.0 - 8.0 pH [facility] Protein (U) [Mass/Vol] 30 mg/dL Abnormal Negative [facility] RBC LM.HPF (Urine sed) [#/Area] 0-2 [facility] Specific gravity (U) [Rel density] 1.037 High 1.005 - 1.030 [facility] Urobilinogen (U) [Mass/Vol] 2 mg/dL Abnormal Normal (0-1) [facility] WBC LM.HPF (Urine sed) [#/Area] 26-50 Abnormal [facility] Basophil percentageon 2021 Cholesterol [Mass/Vol] 211 mg/dL <200 [facility] Work Phone: Comment on above: <200 mg/dL Desirable 200-240 mg/dL Borderline >240 mg/dL High Risk Triglyceride [Mass/Vol] 162 mg/dL <199 [facility] Work Phone: Comment on above: The drugs N-Acetylcy steine and Metamizole may falsely depress this assay.Serum Triglycerides Reference Interval Normal <150 mg/dL Borderline high 150 - 199 mg/dL High 200 - 499 mg/dL Very High > or = 500 mg/dL Serum or plasma cholesterol in HDL measurement (mass/volume)on 05-20-2022 Cholesterol in HDL [Mass/Vol] 40 mg/dL >40 [facility] Work Phone: Comment on above: The drugs N-Acetylcy steine and Metamizole may falsely depress this assay. Reference Range HDL <40 mg/dL Low HDL Cholesterol HDL >or= 60 mg/dL High HDL Cholesterol Serum or plasma cholesterol in VLDL measurement (mass/volume)on 05-20-2022 Cholesterol in VLDL [Mass/Vol] 32 mg/dL 5-40 [facility] Work Phone: Serum or plasma low density lipoprotein (LDL) cholesterol measurement (mass/volume)on 05-20-2022 Cholesterol in LDL [Mass/Vol] 139 mg/dL 0-130 [facility] Work Phone: CNOVon 03-02-2022 CNOV Office Visit (SYNCMN) VALERIA HERNANDEZ ([id number]) 4 F T Date Time Provider Department 03/02/22 10:45 AM JIAN SALASStar During your visit today, we recorded the following information about you: Weight Height 50.3 kg 1.549 m Jian Salas DO 03/02/2022 12:56 PM Signed [facility] Department of Cardiovascular Medicine SECTION OF CARDIAC PACING and ELECTROPHYSIOLOGY OUTPATIENT VISIT DATE March 02, 2022 OUTPATIENT VISIT TYPE CONSULTATION PRIMARY CARE PHYSICIAN: Mya Lyn MD [address] [place] [id number] REFERRING PHYSICIAN Jian Salas [phone] [facility] [address] CHIEF COMPLAINT: syncope HISTORY OF PRESENT ILLNESS: Cardiac consultation at the request of Dr. James Wooten. A copy of this consultation note will be provided to the requesting physician by way of shared Medical record or letter to requesting physician via [place] mail. Ms. Hernandez is a 21 year old female who is seen today for an opinion regarding syncope. She was previously evaluated for this at [facility] in [place] and more recently Dr. Wooten in [place]. She has a history of a short NM on her ECG and has reported palpitations, [...] test. She had been in college in [place] but stress had been exacerbating her symptoms [...] difficulties-No, Bleeding gums-No, Dentures-No. Neck: Swelling-No, Pain-No, S (more content not included)... Normal [facility] Basophil percentageon 2021 Chloride [Moles/Vol] 104 mmol/L 98-107 [facility] Work Phone: Glucose [Mass/Vol] 101 mg/dL 74-106 [facility] Work Phone: Comment on above: Fasting Glucose resu lt from 100 to 125 mg/dL suggests IMPAIRED HOMEOSTASIS per A.D.A. criteria. Potassium [Moles/Vol] 4.1 mmol/L 3.5-5.1 [facility] Work Phone: Sodium [Moles/Vol] 136 mmol/L 136-145 [facility] Work Phone: Cholesterol [Mass/Vol] 246 mg/dL <200 [facility] Work Phone: Comment on above: <200 mg/dL Desirable 200-240 mg/dL Borderline >240 mg/dL High Risk Triglyceride [Mass/Vol] 266 mg/dL [facility] Work Phone: Comment on above: The drugs N-Acetylcy steine and Metamizole may falsely depress this assay.Serum Triglycerides Reference Interval Normal <150 mg/dL Borderline high 150 - 199 mg/dL High 200 - 499 mg/dL Very High > or = 500 mg/dL Laboratory - Chemistry and C hemistry - challengeon 12-31-2021 CO2 [Moles/Vol] 24.0 mmol/L 21.0-32.0 [facility] Work Phone: Urea nitrogen/Creatinine [Mass ratio] 16.0 mg/mg 10-20 [facility] Work Phone: No Panel Informationon 12-31 Estimated GFR (MDRD) Amer 127 mL/min >60 [facility] Work Phone: Comment on above: GFR Calc Estimated GFR (MDRD) Non-Af Amer 105 mL/min >60 [facility] Work Phone: Comment on above: Non- GFR Calc Serum or plasma calcium anila urement (mass/volume)on 12-31-2021 Calcium [Mass/Vol] 9.6 mg/dL 8.5-10.1 [facility] Work Phone: Serum or plasma cholesterol in HDL measurement (mass/volume)on 12-31-2021 Cholesterol in HDL [Mass/Vol] 39 mg/dL [facility] Work Phone: Comment on above: The drugs N-Acetylcy steine and Metamizole may falsely depress this assay. Reference Range HDL <40 mg/dL Low HDL Cholesterol HDL >or= 60 mg/dL High HDL Cholesterol Serum or plasma cholesterol in VLDL measurement (mass/volume)on 12-31-2021 Cholesterol in VLDL [Mass/Vol] 53 mg/dL 5-40 [facility] Work Phone: Serum or plasma creatinine m easurement (mass/volume)on 12-31-2021 Creatinine [Mass/Vol] 0.75 mg/dL 0.55-1.02 [facility] Work Phone: Comment on above: The validity of the calculated GFR & GFRAA in patients over 70 years has not been determined. Clinical correlation is essential. Serum or plasma low density lipoprotein (LDL) cholesterol measurement (mass/volume)on 12-31-2021 Cholesterol in LDL [Mass/Vol] 154 mg/dL 0-130 [facility] Work Phone: Serum or plasma urea nitroge n measurement (mass/volume)on 12-31-2021 Urea nitrogen [Mass/Vol] 12 mg/dL 7-18 [facility] Work Phone: Thin prep Papanicolaou smear with manual screeningon 12-31-2021 Thin prep Papanicolaou smear with manual screening 8 5-15 [facility] Work Phone: CNPNon 12-29-2021 CNPN Telephone (CARDMN) VALERIA HERNANDEZ ([id number]) 02 F IPA Date Time Provider Department 12/29/21 JIAN SALAS During your visit today, we recorded the following information about you: Jimy Crystal Adm 12/29/2021 2:09 PM Signed Received Office Note from [facility] - 12/28/2021 Saved in EP Outside Report Uploaded to Acceptd Docs Thank you, Jimy Rhoades Dredge Engineer Allergies As of Date: 12/29/2021 (No Known Allergies) Date Reviewed: 10/18/2019 Reviewed by: Huyen (Samir) Delaney RN - Fully Assessed Reason for Visit: Received Outside Medical Records [[id number]] Cmt: Office Note - 12/28/2021 - [facility] Prescriptions as of 12/29/2021 - cetirizine (ZYRTEC) 10 mg tablet Take 10 mg by mouth. - , 1 mg-20 mcg (21)/75 mg (7) per tablet Problem List As Of Date: 12/29/2021 (None) Encounter Status:Closed by JIMY BAEZA on 12/29/21 [facility] 12-23-2021 CNPN Telephone (CARDMN) VALERIA HERNANDEZ ([id number]) 02 [facility] Date Time Provider Department 12/23/21 JIAN SALAS During your visit today, we recorded the following information about you: Jimy Bradshaw 12/23/2021 5:28 PM Signed Received records and referral from Dr. Wooten's office Saved in EP Outside Report Uploaded to Acceptd Docs Jimy Rhoades Dredge Engineer Allergies As of Date: 12/23/2021 (No Known Allergies) Date Reviewed: 10/18/2019 Reviewed by: Huyen Hubbard) Delaney, RN - Fully Assessed Reason for Visit: Outside Referral Requests [[id number]] Request Outside Medical Records [[id number]] Prescriptions as of 12/23/2021 - cetirizine (ZYRTEC) 10 mg tablet Take 10 mg by mouth. - , 1 mg-20 mcg (21)/75 mg (7) per tablet Problem List As Of Date: 12/23/2021 (None) Encounter Status:Closed by JIMY BAEZA on 12/23/21 Normal [facility] Absolute lymphocyte counton 11-18-2021 Lymphocytes Auto (Unsp spec) [#/Vol] 2.29 10*3/uL 0.83-4.51 [facility] Work Phone: Basophil percentageon 2021 Basophil percentage 0-5 SEEN /hpf [facility] Work Phone: [phone] Basophils/100 WBC (Bld) 0.7 % 0-1 [facility] Work Phone: [phone] Bilirubin [Mass/Vol] 0.10 mg/dL 0.20-1.00 [facility] Work Phone: [phone] Comment on above: For patients on eltr ombopag therapy, use of Dimension [place] TBIL is not recommended. Chloride [Moles/Vol] 106 mmol/L 98-107 [facility] Work Phone: [phone] Eosinophils/100 WBC (Bld) 1.4 % 0-5 [facility] Work Phone: [phone] Glucose [Mass/Vol] 116 mg/dL 74-106 [facility] Work Phone: [phone] Comment on above: Fasting Glucose resu lt from 100 to 125 mg/dL suggests IMPAIRED HOMEOSTASIS per A.D.A. criteria. Neutrophils (Bld) [#/Vol] 5.1 10*3/uL 2.0-7.7 [facility] Work Phone: [phone] Neutrophils/100 WBC (Bld) 62.1 % 47-70 [facility] Work Phone: [phone] Potassium [Moles/Vol] 3.3 mmol/L 3.5-5.1 [facility] Work Phone: [phone] Protein [Mass/Vol] 7.8 g/dL 6.4-8.2 [facility] Work Phone: [phone] Sodium [Moles/Vol] 138 mmol/L 136-145 [facility] Work Phone: [phone] WBC (Bld) [#/Vol] 8.3 10*3/uL 4.4-11.0 [facility] Work Phone: Bilirubin Test strip Ql (U)o n 11-18-2021 Bilirubin Ql (U) Negative Negative [facility] Work Phone: Blood erythrocytes count (nu mber/volume)on 11-18-2021 RBC (Bld) [#/Vol] 4.77 10*6/uL 4.2-5.4 [facility] Work Phone: Blood hemoglobin measurement (mass/volume)on 11-18-2021 Hemoglobin (Bld) [Mass/Vol] 13.4 g/dL 12.0-15.0 [facility] Work Phone: Blood lymphocytes/100 leukoc yteson 11-18-2021 Lymphocytes/100 WBC (Bld) 27.6 % 19-41 [facility] Work Phone: Blood monocytes/100 leukocyt eson 11-18-2021 Monocytes/100 WBC (Bld) 8.0 % 0-10 [facility] Work Phone: Blood platelet mean volumeon 11-18-2021 Platelet mean volume (Bld) [Entitic vol] 9.7 fL 6.2-12.0 [facility] Work Phone: Determination of erythrocyte mean corpuscular volume (MCV)on 11-18-2021 MCV (RBC) [Entitic vol] 82.6 fL 81-99 [facility] Work Phone: Hematocrit Auto (Bld) [Volum e fraction]on 11-18-2021 Hematocrit (Bld) [Volume fraction] 39.4 % 37-47 [facility] Work Phone: Ketones Test strip Ql (U)on 11-18-2021 Ketones Ql (U) 5 mg/dl Negative [facility] Work Phone: Laboratory - Chemistry and C hemistry - challengeon 11-18-2021 HCG ( test) Ql (U) Negative [facility] Work Phone: Comment on above: Very dilute urine sp ecimens, as indicated by a low specificgravity, may not contain dairy supplies sales representative levels of hCG. If is still suspected, a first morning urinespecimen should be collected 48 hours later and tested. ALP [Catalytic activity/Vol] 79 U/L 45-117 [facility] Work Phone: ALT [Catalytic activity/Vol] 12 U/L 13-56 [facility] Work Phone: CO2 [Moles/Vol] 28.0 mmol/L 21.0-32.0 [facility] Work Phone: Globulin (S) [Mass/Vol] 4.5 g/dL 2.2-4.2 [facility] Work Phone: Urea nitrogen/Creatinine [Mass ratio] 14.6 mg/mg 10-20 [facility] Work Phone: Laboratory - Hematology and Cell countson 11-18-2021 Erythrocyte distribution width (RBC) [Entitic vol] 39.1 fL 35.1-43.9 [facility] Work Phone: Erythrocyte distribution width (RBC) [Ratio] 13.0 % 11.6-14.6 [facility] Work Phone: Immature granulocytes/100 WBC (Bld) 0.200 % 0.0-0.9 [facility] Work Phone: Comment on above: IG% - Immature Granu locytes (promyelocytes, myelocytes and metamyelocytes) > 1% indicates that a LEFT SHIFT is Present. MCH (RBC) [Entitic mass] 28.1 pg 27.0-32.0 [facility] Work Phone: Nucleated RBC/100 WBC (Bld) [Ratio] 0 % 0-5 [facility] Work Phone: MCHC Auto (RBC) [Mass/Vol]on 11-18-2021 MCHC (RBC) [Mass/Vol] 34.0 g/dL 32-36 [facility] Work Phone: Mucus LM Ql (Urine sed)on Mucus Ql (Urine sed) RARE /hpf [facility] Work Phone: Nitrite Test strip Ql (U)on 11-18-2021 Nitrite Ql (U) Negative Negative [facility] Work Phone: No Panel Informationon 11-18 Estimated Creatinine Clearance Calc 91.04 ml/min [facility] Work Phone: Estimated GFR (MDRD) Amer 127 mL/min >60 [facility] Work Phone: Comment on above: GFR Calc Estimated GFR (MDRD) Non-Af Amer 105 mL/min >60 [facility] Work Phone: Comment on above: Non- GFR Calc Platelets bldon 11-18-2021 Platelets (Bld) [#/Vol] 502 10*3/uL 150-450 [facility] Work Phone: Protein Test strip Ql (U)on 11-18-2021 Protein Ql (U) 15 mg/dl Negative [facility] Work Phone: Serum or plasma albumin anila urement (mass/volume)on 11-18-2021 Albumin [Mass/Vol] 3.3 g/dL 3.2-5.0 [facility] Work Phone: Serum or plasma albumin/glob ulin mass ratioon 11-18-2021 Albumin/Globulin [Mass ratio] 0.7 {ratio} 0.9-2.4 [facility] Work Phone: Serum or plasma calcium anila urement (mass/volume)on 11-18-2021 Calcium [Mass/Vol] 9.2 mg/dL 8.5-10.1 [facility] Work Phone: Serum or plasma creatinine m easurement (mass/volume)on 11-18-2021 Creatinine [Mass/Vol] 0.75 mg/dL 0.55-1.02 [facility]: Comment on above: The validity of the calculated GFR & GFRAA in patients over 70 years has not been determined. Clinical correlation is essential. Serum or plasma urea nitroge n measurement (mass/volume)on 11-18-2021 Urea nitrogen [Mass/Vol] 11 mg/dL 7-18 [facility] Work Phone: Squamous epithelial cells de tection in urine sediment by light microscopyon 11-18-2021 Epithelial cells.squamous LM Ql (Urine sed) 0-5 SEEN /hpf [facility] Work Phone: Thin prep Papanicolaou smear with manual screeningon 11-18-2021 Thin prep Papanicolaou smear with manual screening 8 U/L 15-37 [facility] Work Phone: Thin prep Papanicolaou smear with manual screening 4 5-15 [facility] Work Phone: Urine blood detectionon 10-27 RBC Ql (U) Negative Negative [facility] Work Phone: RBC Ql (U) 0 SEEN /hpf [facility] Work Phone: Urine clarityon 11-18-2021 Clarity (U) Sl. Cloudy Clear [facility] Work Phone: Urine color determinationon 11-18-2021 Color (U) Yellow Yellow [facility] Work Phone: Urine glucose detectionon Glucose Ql (U) Normal mg/dl Normal [facility] Work Phone: Urine leukocyte esterase det ection by dipstickon 11-18-2021 Leukocyte esterase Test strip Ql (U) 25 /ul Negative [facility] Work Phone: Urine pHon 11-18-2021 pH (U) 6.0 [pH] [facility] Work Phone: Urine sediment bacteria coun t by microscopy (number/high power field)on 11-18-2021 Bacteria LM.HPF (Urine sed) [#/Area] 0 /[HPF] None Seen [facility] Work Phone: Urine specific gravity measu rementon 11-18-2021 Specific gravity (U) [Rel density] 1.020 [facility] Work Phone: Urobilinogen Auto test strip Ql (U)on 11-18-2021 Urobilinogen Ql (U) Normal mg/dl Normal [facility] Work Phone: Basophil percentageon 2021 WBC (Bld) [#/Vol] 7.6 10*3/uL 4.4-11.0 [facility] Work Phone: Beta hCG serum qualon 2021 Beta HCG ( test) Ql Negative [facility] Work Phone: Blood erythrocytes count (nu mber/volume)on 11-16-2021 RBC (Bld) [#/Vol] 4.65 10*6/uL 4.2-5.4 [facility] Work Phone: Blood hemoglobin measurement (mass/volume)on 11-16-2021 Hemoglobin (Bld) [Mass/Vol] 13.1 g/dL 12.0-15.0 [facility] Work Phone: Blood platelet mean volumeon 11-16-2021 Platelet mean volume (Bld) [Entitic vol] 9.4 fL 6.2-12.0 [facility] Work Phone: Determination of erythrocyte mean corpuscular volume (MCV)on 11-16-2021 MCV (RBC) [Entitic vol] 81.9 fL 81-99 [facility] Work Phone: Hematocrit Auto (Bld) [Volum e fraction]on 11-16-2021 Hematocrit (Bld) [Volume fraction] 38.1 % 37-47 [facility] Work Phone: Laboratory - Hematology and Cell countson 11-16-2021 Erythrocyte distribution width (RBC) [Entitic vol] 39.2 fL 35.1-43.9 [facility] Work Phone: Erythrocyte distribution width (RBC) [Ratio] 13.2 % 11.6-14.6 [facility] Work Phone: MCH (RBC) [Entitic mass] 28.2 pg 27.0-32.0 [facility] Work Phone: MCHC Auto (RBC) [Mass/Vol]on 11-16-2021 MCHC (RBC) [Mass/Vol] 34.4 g/dL 32-36 [facility] Work Phone: Platelets bldon 11-16-2021 Platelets (Bld) [#/Vol] 447 10*3/uL 150-450 [facility] Work Phone: Laboratory - Microbiology an d Antimicrobial susceptibilityon 09-08-2021 SARS-CoV-2 (COVID-19) RNA LUI+probe Ql (Unsp spec) Detected Not Detect [facility] Work Phone: Comment on above: Normal Reference Ran ge: Not DetectedMethod:(RT-PCR) real-time reverse transcriptase PCRLuminex CARLOS Instrument*The Food and Drug Administration (FDA) has issued an Emergency Use Authorization (EAU) for the CARLOS SARS-CoV-2 Assay for the rapid detection of the virus that causes COVID-19. This test has been validated, but the FDAs independent review of this validation is pending.*Negative results do not preclude infection and should not be used as the sole basis for treatment or patient management. Optimum specimen types and timing for peak viral levels during infections caused by SARS-CoV-2 have not been determined. Collection of multiple specimens from the same patient may be necessary to detect the virus. The possibility of a false negative result should be considered if the patient has clinical presentation or has had recent exposure. HOLTER MONITOR - (UP TO 48 H OUR)on 07-01-2021 HOLTER MONITOR - (UP TO 48 HOUR) Heart rate ranged from 49 to 175 bpm with an average heart rate of 84 bpm. Longest pause 1.4 seconds. No ventricular ectopic beats. 6 supraventricular ectopic beats including 1 pair. Standing still palp's increased heart rate correlated with sinus tachycardia. Sitting palp's increased heart rate correlated with sinus tachycardia. Symptoms correlate with sinus tachycardia. Normal [facility] ECHOCARDIOGRAM COMPLETEon ECHOCARDIOGRAM COMPLETE Patient Info Name: VALERIA HERNANDEZ Age: 21 years : 2000 Gender: Female Ht: 154 cm Wt: 50 kg BSA: 1.46 m2 HR: 69 bpm BP: 105 / 69 mmHg Heart Rhythm: Sinus Rhythm Technical Quality: Fair Exam Date: 06/24/2021 8:09 AM Patient Status: Outpatient Roller Stainer: Christopher Rose BA, RDCS (AE) Exam Type: ECHOCARDIOGRAM COMPLETE Study Info Indications - Syncope Attending Physician: FINN CRONIN Referring Physician: FINN CRONIN ; [id number] BMI: 21.04 kg/m2 Summary 1. Left ventricular systolic function is normal with an ejection fraction by Biplane Method of Discs of 61 %. 2. The left ventricular diastolic function is normal. 3. Right ventricular systolic function is normal. 4. No valvular heart disease noted. History/Risk Factors SYNCOPE,. Left Ventricle Left ventricular chamber dimension is normal. Left ventricular systolic function is normal with an ejection fraction by Biplane Method of Discs of 61 %. Normal left ventricular mass. Left ventricular segmental wall motion is normal. The left ventricular diastolic function is normal. Right Ventricle Right ventricular chamber dimension is normal. Right ventricular systolic function is normal. Left Atria Left atrial chamber is normal with a left atrial volume index of Empty by BP MOD. Right Atria Right atrial chamber dimension is normal. Aortic Valve The aortic valve is trileaflet. There is no aortic valve sclerosis. There is no aortic valve regurgitation. Pulmonic Valve The pulmonic valve is normal. There is no pulmonic valve stenosis. There is trace pulmonic regurgitation. Mitral Valve The mitral valve has normal leaflets. There is no mitral valve stenosis. There is trace mitral valve regurgitation. Tricuspid Valve The tricuspid valve leaflets are normal. There is no significant tricuspid valve stenosis. There is trace tricuspid valve regurgitation. There is no pulmonary hypertension, estimated right ventricle systolic pressure is 21 mmHg. Pulmonary Veins Pulmonary veins are normal by two-dimensional and color flow imaging. Pericardium/Pleural The pericardium appears normal. There is no pericardial effusion. Inferior Vena Cava Normal inferior vena cava with >50% collapse upon inspiration consistent with normal right atrial pressure. Aorta The aortic measurements are indexed to age and body surface area. The aortic root is normal measuring 2.1 cm with an index of 1.4 cm/m2. The proximal ascending aorta is normal measuring 2.2 cm with an index of 1.5 cm/m2. Left Ventricular Outflow Tract Name Value Normal LVOT 2D LVOT Diameter 1.7 cm LVOT Doppler LVOT Peak Velocity 1.1 m/s LVOT Mean Gradient 2 mmHg LVOT VTI 23 cm LVOT Stroke Volume 52 ml LVOT Stroke Index 35.66 ml/m2 LVOT CO 3.4 l/min LVOT CI 2.3 L/min/m2 Pulmonic Valve Name Value Normal PV 2D RVOT Diameter (2D) 1.8 cm 1.7-2.7 RVOT Doppler RVOT Peak Velocity 77 cm/s RVOT Mean Gradient 1 mmHg PV Regurgitation Doppler NM Peak End Diastolic Velocity 80 cm/s Mitral Valve Name Value Normal MV Doppler MV Decel Sabine 273 cm/s2 MV PHT 98 ms MV Area (PHT) 2.2 cm2 4.0-5.0 MV Diastolic Function MV E Peak Velocity 1 m/s MV A Peak Velocity 0 m/s MV E/A 2.0 MV Decel Time 338 ms MV Annular TDI MV Septal e' Velocity 15.1 cm/s >=8.0 MV E/e' (Septal) 6.1 <=8.0 MV Lateral e' Velocity 15.2 cm/s >=10.0 MV E/e' (Lateral) 6.1 <=8.0 MV e' Average 15.15 cm/s MV E/e' (Average) 6.1 Tricuspid Valve Name Value Normal TV Regurgitation Doppler TR Peak Velocity 2.13 m/s Estimated PAP/RSVP - (more content not included)... Normal [facility] ED Provider Progress Noteon 06-13-2021 Visiting Teacher Authentication Interface Message Text Valeria Hernandez : 2000 Chief Complaint Patient presents with Pharyngitis No Known Allergies DOS: 06/12/2021 Valeria Hernandez is a 21 y.o. female here with anterior left neck pain that began yesterday, no radiation. No fevers, no difficulty swallowing. Has not tried taking any medications for this. She was recently diagnosed with supraventricular tachycardia and will have Holter monitor in next week with possible ablation in future. She states she have palpitations that come and go. No palpitations today. Reviewed all medications under triage review. NKDA. Review of Systems Constitutional: Negative for activity change and fever. HENT: Negative for congestion and rhinorrhea. Neck pain (see HPI) Respiratory: Negative for cough. Gastrointestinal: Negative for diarrhea, nausea and vomiting. Musculoskeletal: Positive for neck pain (anterior left neck pain ). Allergic/Immunologic : Negative for environmental allergies and food allergies. Neurological: Negative for dizziness. Past Medical History: Diagnosis Date Depression History reviewed. No pertinent surgical history. Pediatric History Patient Parents Kerrie Heller (Mother) Eric Hernandez (Father) Other Topics Concern Not on file Social History Narrative Not on file ED Triage Vitals Date and Time Temp Temp src Pulse Resp BP SpO2 Weight User 06/12/21 2108 36.4 C (97.5 F) -- 79 20 123/65 96 % 51 kg TRH Physical Exam Vitals and nursing note reviewed. Constitutional: Appearance: She is well-developed. HENT: Head: Normocephalic and atraumatic. Right Ear: Tympanic membrane and ear canal normal. Left Ear: Tympanic membrane and ear canal normal. Mouth/Throat: Mouth: Mucous membranes are moist. Pharynx: Uvula midline. Posterior oropharyngeal erythema present. No pharyngeal swelling or oropharyngeal exudate. Neck: Musculoskeletal: Normal range of motion. Thyroid: Thyromegaly present. Cardiovascular: Rate and Rhythm: Normal rate and regular rhythm. Heart sounds: Normal heart sounds. No murmur heard. No friction rub. No gallop. Pulmonary: Effort: Pulmonary effort is normal. Breath sounds: Normal breath sounds. Abdominal: Palpations: Abdomen is soft. Lymphadenopathy: Cervical: Cervical adenopathy (small 1 cm palpable tender nodule just anterior to L. SCM) present. Skin: General: Skin is warm. Capillary Refill: Capillary refill takes less than 2 seconds. Neurological: Mental Status: She is alert. Procedures MDM Number of Diagnoses or Management Options Anterior neck pain Diagnosis management comments: Valeria Hernandez is a 21 y.o. female here with L. Anterior neck pain with small subtle tender lymph node. Given initial dose of 20 mg toradol in ED and will recommend 5 day course of toradol. Considered thyroid pathology but no thyromegaly, considered deep neck infection but lack of fever, trismus, drooling, and has full ROM of neck). If not improving after 5 day course of toradol, should see PCP for evaluation and workup. ED Course: Diagnosis' considered: Labs/Radiology: Consults: No orders of the defined types were placed in this encounter. Medical Record/Transferring Institution Record: Treatment/Reassessme nt: Encounter Documentation/Handof f: Final Clinical Impression/Diagnosis as of 06/12/21 2257 Anterior neck pain Normal [facility] Strep Cultureon 06-12-2021 Strep Culture Release to patient->Automatic 31888&Throat swab Strep Culture: No Beta hemolytic Streptococci isolated. Source: THRSW Collected: 06/12/21 21:53 Site: Received : 06/12/21 22:03 Strep Culture FINAL 06/14/21 11:15 No Beta hemolytic Streptococci isolated. Normal [facility] Comment on above: Performed By: #### S TREP #### [place] [address] Lipid Panelon 11-06-2020 Cholesterol [Mass/Vol] 243 mg/dL High 0-169 [facility] Comment on above: Order Comment: Relea se to patient->Automatic Is this specimen being sent to an external lab?->No [id number]&Blood^\S\^Left Hand&Left Hand Result Comment: Acceptable <170 mg/dL Borderline 170-199 mg/dL Abnormal >199 mg/dL NOTE: Reference Range change effective 07/31/18 Performed By: #### L IPID #### [address] [address] Cholesterol in HDL [Mass/Vol] 42 mg/dL Normal [facility] Comment on above: Order Comment: Relea se to patient->Automatic Is this specimen being sent to an external lab?->No [id number]&Blood^\S\^Left Hand&Left Hand Result Comment: Acceptable >45 mg/dL Borderline 40-45 mg/dL Abnormal <40 mg/dL NOTE: Reference Range change effective 07/31/18 Performed By: #### L IPID #### [address] [address] Cholesterol in LDL [Mass/Vol] 172 mg/dL High 0-109 [facility] [facility] Comment on above: Order Comment: Relea se to patient->Automatic Is this specimen being sent to an external lab?->No [id number]&Blood^\S\^Left Hand&Left Hand Result Comment: Acceptable <110 mg/dL Borderline 110-129 mg/dL Abnormal >129 mg/dl NOTE: Reference Range change effective 07/31/18 Performed By: #### L IPID #### [address] [id number] Non-HDL Cholesterol 201 mg/dl High 0-119 [facility] Comment on above: Order Comment: Relea se to patient->Automatic Is this specimen being sent to an external lab?->No [id number]&Blood^\S\^Left Hand&Left Hand Result Comment: Acceptable <120 mg/dL Borderline 120-144 mg/dL Abnormal >144 mg/dl Performed By: #### L IPID #### [address] [id number] Triglyceride [Mass/Vol] 143 mg/dL High 0-89 [facility] Comment on above: Order Comment: Relea se to patient->Automatic Is this specimen being sent to an external lab?->No [id number]&Blood^\S\^Left Hand&Left Hand Result Comment: Acceptable <90 mg/dl Borderline 90-129 mg/dl Abnormal >129 mg/dl NOTE: Reference Range change effective 07/31/18 Result invalid if not a fasting specimen. Performed By: #### L IPID #### [place] [address] Progress Noteon 11-06-2020 Visiting Teacher Authentication Interface Message Text Patient ID: Valeria Hernandez is a 20 y.o. female. Her chief complaint(s) include: 20 YEAR WELL CHILD (Wears glasses. Not sleeping well. Color blind concerns. ), Loss of Consciousness (spells. Loss sight during the last episode. Happens about once a week. High heart rate warnings.), and Knee Pain (on-going issue.) Assessment 1. Routine general medical examination at a health care facility 2. Acute insomnia 3. Anxiety 4. Screening for lipoid disorders 5. Anemia, unspecified type 6. Tachycardia 7. Lightheadedness 8. Dysmenorrhea 9. Chronic pain of both knees 10. Hyperlipidemia, unspecified hyperlipidemia type Plan Valeria was seen today for 20 year well child, loss of consciousness and knee pain. Diagnoses and all orders for this visit: Routine general medical examination at a health care facility - Hearing Screening - PHQ9 Assessment With Score - Health Risk Assessment - DUSTY Acute insomnia - hydrOXYzine (ATARAX) 25 MG tablet; Take 1 Tablet (25 mg) by mouth every 6 hours as needed for Anxiety Anxiety - hydrOXYzine (ATARAX) 25 MG tablet; Take 1 Tablet (25 mg) by mouth every 6 hours as needed for Anxiety Screening for lipoid disorders - Finger/Heel Stick - Lipid panel Anemia, unspecified type - pOCT Hemoglobin Female Tachycardia - EKG 12 lead (ECG); Future Lightheadedness - EKG 12 lead (ECG); Future Dysmenorrhea - Discontinue: norethindrone-ethiny l estradiol-iron (LOESTRIN 24 FE) 1-20 MG-MCG(24) tablet; Take 1 Tablet by mouth daily for 90 days - norethindrone-ethiny l estradiol-iron (LOESTRIN 24 FE) 1-20 MG-MCG(24) tablet; Take 1 Tablet by mouth daily for 90 days Chronic pain of both knees - AMB Referral To Sports Medicine; Future Hyperlipidemia, unspecified hyperlipidemia type Return in about 1 year (around 11/06/2021) for well check. Would not like to try counseling for anxiety Subjective HPI Comments: Last WCC at 19 years Sleeping issues Avoiding screen 1 hr before going to bed Lot going on Mom feels unable to relax Tried counseling in past for depression and anxiety Did not seem to help Set bedtime routine 9 pm - 6am 10pm - 9:15 am Unable to fall asleep until 12 noon Melatonin 10 mg daily Tried advil pm Benadryl High heart rate warning on the apple watch > 110 Episode of passing out 2 weeks ago Everything went black Did not fall on the ground but fell had her knees on the ground Water : 120 oz Meals : regular Eats breakfast regularly Eats regular salt in the diet Feels lightheaded as well Has been going on x 1 month Knee pain x 1 year Get very tight Get locked and then have to pop them to feel normal again Refill on control pills No side effects She is accompanied by her mother and sibling(s). No change over was used. 20 YEAR WELL CHILD Home: Valeria eats meals with family, has an adult to turn to for help and is permitted and able to make independent decisions. Education: Valeria is in 12th grade and is doing well and earns A's. (Will be studying astrophysics ). Eating: Valeria eats regular meals including fruits and vegetables, eats breakfast, limits fast food and has a calcium source. Valeria does not have an eating risk identified. Activities & Sports: Valeria engages in screen time less than 2 hours daily. Valeria performs less than 1 hour of physical activity daily. Drugs: Valeria does not use tobacco, does not use drugs, does not use alcohol and does not vape. Safety: Valeria uses seat belt. Valeria does not use phone/text while driving and has no safety risk identified. Sex: The patient has never had a sexual partner. Suicidality: Valeria has ways to cope with stress and has anxiety. Valeria has no depression. Menstruation Last Menstrual period: hormonal therapy (LMP 3 weeks ) Menstruation: regular periods Output Urine and Stool Pattern: Urine and Stool Pattern: no constipation, normal urine pattern. Stool Consistency: soft Sleep Sleeping Difficulty: difficulty falling asleep and problems with frequent waking Hours sleep per time: 5-8 hrs Teen Anticipatory Guidance The following anticipatory guidance was reviewed during the visit: Nutrition: limit junk food/fast food and soft drinks. Social: avoid or limit screen time. Health: age appropriate dental care. Screenings Previous Vaccine Reactions: No. Tuberculosis Concerns: Negative Tuberculosis Screen Concerns: no TB Risk Factors Hearing Vision Concerns: Patient wears glasses or contact lenses. The caregiver has no concerns about the patient's hearing. The caregiver has no concerns about the patient's vision. Patient is being seen by sailboat captain or glass worker. Hyperlipidemia Concerns: Negative Hyperlipidemia Screen Concerns: no Hyperlipidemia Risk Factors Loss of Consciousness Knee Pain Review of Systems Cardiovascular: Positive for syncope. Objective Vital (more content not included)... Normal [facility] Visiting Teacher Authentication Interface Message Text Valeria Hernandez is a 20 y.o. female patient. PHQ9 Assessment With Score Performed by: Ivet Rosenberg MD Authorized by: Ivet Rosenberg MD PHQ-9 See PHQ9 Flowsheet Feeling down, depressed, irritable or hopeless: Not at all Little interest or pleasure in doing things: Not at all Trouble falling or staying sleep, or sleeping too much: Nearly every day Poor appetite, weight loss, or overeating: Several days Feeling tired or having little energy: Several days Feeling bad about yourself - or feeling that you are a failure, or have let yourself or your family down: Not at all Trouble concentrating on things, like school work, reading or watching TV: More than half the days Moving or speaking so slowly that other people could have noticed. Or the opposite - being so fidgety or restless that you were moving around a lot more than usual: Not at all Thoughts that you would be better off , or of hurting yourself in some way: Not at all In the past year have you felt depressed or sad most days, even if you felt OK sometimes?: No If you are experiencing any of the problems on this form, how difficult have these problems made it for you to do your work, take care of things at home or get along with other people?: Somewhat difficult Has there been a time in the past month when you have had serious thoughts about ending your life?: No Have you ever, in your whole life, tried to kill yourself or made a suicide attempt?: No PHQ-9 Total Score: 7 Electronically signed by: Ivet Rosenberg MD [facility] Visiting Teacher Authentication Interface Message Text Valeria Hernandez is a 20 y.o. female patient. Health Risk Assessment - CRAFFT Authorized by: Ivet Rosenberg MD CRAFFT Results: 1. Drink more than a few sips of beer, wine, or any drink containing alcohol? Put 0 if none.: 0 2. Use any marijuana (weed, oil, or hash by smoking, vaping, or in food) or synthetic marijuana (like K2, Spice)? Put 0 if none.: 0 3. Use anything else to get high (like other illegal drugs, prescription or ussl-wum-eyehkha medications, and things that you sniff, wright, or vape)? Put 0 if none.: 0 4. Use any tobacco or nicotine products (for example, cigarettes, e-cigarettes, hookahs or smokeless tobacco)?: 0 5. Have you ever ridden in a CAR driven by someone (including yourself) who was high or had been using alcohol or drugs?: No Electronically signed by: Ivet Rosenberg MD [facility] ED NOTEon 10-18-2019 ED NOTE HNO ID: [id number] Author: Marc Hubbard) SAMIR Marx Service: Emergency Medicine Author Type: Registered Nurse Type: ED Notes Filed: 10/19/2019 10:04 AM Note Text: Patient Call Back Information ? How are you doing ? better ? Did we appropriately manage your pain? Yes ? Did you understand your discharge instructions? Yes ? Did you get your prescriptions filled? Yes ? Were you able to make a follow-up appointment with your physician? Yes ? Were you comfortable during your stay here? Yes ? Did a member of the ER nursing team round on you during your visit? Yes ? You will receive a patient satisfaction survey in the mail in the nest 2 weeks, please take the time to fill out the survey as your input from your ER visit is very important to us. Yes ? Can we do anything else to help you? No [facility] ED NOTE HNO ID: [id number] Author: Marc (Roseline Marx RN Service: Emergency Medicine Author Type: Registered Nurse Type: ED Notes Filed: 10/28/2019 1:47 PM Note Text: In chart for audit [facility] ED NOTE HNO ID: [id number] Author: Patricia NguyenRn) SAMIR Nicholson Service: Emergency Medicine Author Type: Registered Nurse Type: ED Notes Filed: 10/18/2019 7:27 AM Note Text: Pt/pt's mother given discharge instructions, pt's mothers questions answered and pt's mother denies any further questions at time of discharge. Pt ambulates out of dept with a steady gait. School note given [facility] ED NOTE HNO ID: [id number] Author: Patricia NguyenRn) SAMIR Nicholson Service: Emergency Medicine Author Type: Registered Nurse Type: ED Notes Filed: 10/18/2019 7:06 AM Note Text: Report received from alberto baltazar rn. Assumed care of pt. At this time dr max is at bedside with pt explaining results of testing and plan of care [facility] ED NOTE HNO ID: [id number] Author: Melinda Marx RN Service: Emergency Medicine Author Type: Registered Nurse Type: ED Notes Filed: 10/18/2019 6:39 AM Note Text: Patient informed: the name of medication, why we are giving it, possible side effects, what they may expect to feel, and was offered a chance to ask questions, prior to the administration of Tylenol. [facility] ED NOTE HNO ID: [id number] Author: Huyen Baltazar RN Service: Emergency Medicine Author Type: Registered Nurse Type: ED Notes Filed: 10/18/2019 6:23 AM Note Text: Pt to ed with c/o cough, sore throat, fever and body aches this morning. Pt reports she started feeling this way after getting home from school yesterday. No n/v. No tylenol or motrin given today. [facility] ED PROV NOTEon 10-18-2019 ED PROV NOTE HNO ID: [id number] Author: Pranay Max MD Service: Emergency Medicine Author Type: Physician Type: ED Provider Notes Filed: 10/18/2019 7:22 AM Note Text: ED Provider Note Patient Name: Valeria Hernandez SERVICE DATE: 10/18/19 History Patient presents with: Cough Fever Sore Throat Patient presents with mother and sister for symptoms consistent with the flu. Patient has been sick since yesterday afternoon, she's had a high fever, body aches, headache, not felt well. There is no sick contacts reported however. There's been no nausea no vomiting no diarrhea no skin rash. No medications were taken prior to presentation. Immunisations are reported up-to-date. Flu Like Symptoms Presenting symptoms: cough, fatigue, fever, headache and sore throat Presenting symptoms: no shortness of breath and no vomiting Severity: Mild Onset quality: Gradual Duration: 1 day Progression: Worsening Chronicity: New Worsened by: Nothing Ineffective treatments: None tried Associated symptoms: chills and decreased physical activity Associated symptoms: no ear pain, no mental status change and no neck stiffness Risk factors: not elderly, no diabetes problem, no heart disease, no immunocompromised state, no kidney disease, no liver disease, not and no sick contacts History reviewed. No pertinent past medical history. PAST SURGICAL HISTORY Procedure Laterality Date - ADENOIDECTOMY HX No family history on file. Social History Tobacco Use - Smoking status: Never Smoker - Smokeless tobacco: Never Used Substance and Sexual Activity - Alcohol use: Never Frequency: Never - Drug use: Never - Sexual activity: Not on file ALLERGIES No Known Allergies Review of Systems Constitutional: Positive for chills, fatigue and fever. HENT: Positive for sore throat. Negative for ear pain. Respiratory: Positive for cough. Negative for shortness of breath. Gastrointestinal: Negative for vomiting. Musculoskeletal: Negative for neck stiffness. Neurological: Positive for headaches. All other systems reviewed and are negative. Physical Exam BP 126/70 Pulse 135 Temp (Src) 101.9 (Temporal) Resp 16 Ht 5' 1 (1.55m) Wt 114 lb (51.7kg) SpO2 98% LMP 09/27/2019 BMI 21.55 kg/(m2). O2 Therapy: Room Air Physical Exam Vitals signs and nursing note reviewed. Constitutional: Appearance: She is well-developed. Comments: Patient is uncomfortable, she is febrile, she is tachycardic HENT: Head: Normocephalic and atraumatic. Right Ear: Tympanic membrane and ear canal normal. No swelling or tenderness. Left Ear: Tympanic membrane and ear canal normal. No swelling or tenderness. Nose: Congestion present. Mouth/Throat: Mouth: Mucous membranes are moist. No oral lesions. Pharynx: Posterior oropharyngeal erythema present. No pharyngeal swelling, oropharyngeal exudate or uvula swelling. Tonsils: Swellin on the right. 0 on the left. Eyes: General: Right eye: No discharge. Left eye: No discharge. Conjunctiva/sclera: Conjunctivae normal. Pupils: Pupils are equal, round, and reactive to light. Neck: Musculoskeletal: Normal range of motion and neck supple. Thyroid: No thyromegaly. Cardiovascular: Rate and Rhythm: Regular rhythm. Tachycardia present. Pulmonary: Effort: Pulmonary effort is normal. No respiratory distress. Breath sounds: No wheezing or rales. Lymphadenopathy: Cervical: No cervical adenopathy. Skin: Findings: No rash. Neurological: Mental Status: She is alert and oriented to person, place, and time. Psychiatric: Behavior: Behavior normal. Thought Content: Thought content normal. Judgment: Judgment normal. Diagnostic Testing ED Labs Ordered and Reviewed INFLUENZA A AND B DIRECT ANTIGEN (AV,EU,FV,HL,MARCIA,MM,S P) Procedures ED Course / Clinical Impression Clinical Impressions as of Oct 18 721 Flu-like symptoms MDM / Disposition / Plan This is a 19-year-old female with reported up to date immunizations are presents with mother with concern for a flulike illness. Patient rotator sudden onset of symptoms yesterday into today consisting of headache, myalgias, chills, high fever and sore throat. On physical exam I cannot appreciate a focus of bacterial infection. I have no concern for sepsis in this patient. Patient took Advil from her purses just as I was going into her room, and a dose of Tylenol was given, in the ED. Flu swabs were obtained and were negative. Despite the above with the sensitivity of only 50-70% of the swabs still feel patient's presentation is consistent with a flulike illness. This was stressed with mother and patient. I've also had a lengthy cover sensation with them about Tamiflu, the side effects, the benefits, and using sure decision-making we have decided not to administer it. Instructions were [id number] fever medication was given and reiterated, as well as [id number] symptomatic therapy should be warranted. Patient is discharged home with a note for school, and expected duration, symptoms of a flu like illness. Please note this report has been produced using speech recognition software and may contain errors related to that system including errors in grammar, punctuation, and spelling, as well as words and phrases that may be inappropriate. If there are any questions or concerns please feel free to contact the dictating physician for clarification. Disposition The patient was discharged. Counseled patient and mother regarding lab results. As well as the need for follow-up. Discharged home with verbal and written instructions. They were instructed to return as needed for persistent or worsening symptoms or any new concerns. Condition at disposition is improved. SIGNATURE: MD Pranay Segovia MD 10/18/19 0722 [facility] Rapid Influenza A/Bon 2019 Rapid Influenza A/B See below Normal Negative [facility] Comment on above: Result Comment: Nega tive for influenza A and B. Performed By: #### [facility] #### [place] [id number] Vital Signs Date Time Vital Sign Value Performing Clinician Facility 04-09-2025 09:37-0400 Body height 154.[address] Madeline Caldwell MD Work Phone: [facility] 04-09-2025 09:37-0400 Body mass index (BMI) [Ratio] 20.8 kg/m2 Dr. Madeline Caldwell MD Work Phone: [facility] 04-09-2025 09:37-0400 Body temperature 96.4 [degF] Dr. Madeline Caldwell MD Work Phone: [facility] 04-09-2025 09:37-0400 Body weight [address] Madeline Caldwell MD Work Phone: [facility] 04-09-2025 09:37-0400 Diastolic blood pressure 68 mm[Hg] Dr. Madeline Caldwell MD Work Phone: [facility] 04-09-2025 09:37-0400 Heart rate 115 /min Dr. Madeline Caldwell MD Work Phone: [facility] 04-09-2025 09:37-0400 Respiratory rate 16 /min Dr. Madeline Caldwell MD Work Phone: [facility] 04-09-2025 09:37-0400 SaO2% (BldA) [Mass fraction] 97 % Dr. Madeline Caldwell MD Work Phone: [facility] 04-09-2025 09:37-0400 Systolic blood pressure 122 mm[Hg] Dr. Madeline Caldwell MD Work Phone: [facility] 06-27-2024 17:14-0400 Body temperature 98.1 [degF] Finn Grossman MD Work Phone: [facility] 06-27-2024 17:14-0400 Diastolic blood pressure 81 mm[Hg] Finn Grossman MD Work Phone: [facility] 06-27-2024 17:14-0400 Heart rate 117 /min Finn Grossman MD Work Phone: [facility] 06-27-2024 17:14-0400 Respiratory rate 18 /min Finn Grossman MD Work Phone: [facility] 06-27-2024 17:14-0400 SaO2% (BldA) [Mass fraction] 97 % Finn Grossman MD Work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
== END | disposition home or self-care (01) ==
LOC: LABSPEC 16:22
PROVIDERS: PCP Internal Medicine; Visit Provider Advanced Practice Midwife
DX: N89.8 Other specified noninflammatory disorders of vagina (principal)
CPT/HCPCS: 87070; 87205